=== PATIENT | female | born 1945 | race Caucasian/White ===

== ENCOUNTER 2016-08-28 17:21 | Inpatient (IN) ==
[~2016-08-28 17:21] MED LIST: *HR* Norepinephrine 4 MG/4 ML VIAL IVC ONE
--- NOTE | 2016-08-28 17:32 | Emergency Department Note ---
Disposition Clinical Impression: Leukocytosis Qualifiers: Leukocytosis type: unspecified Qualified Code(s): D72.829 - Elevated white blood cell count, unspecified Urinary tract infection Qualifiers: Urinary tract infection type: acute cystitis Hematuria presence: without hematuria Qualified Code(s): N30.00 - Acute cystitis without hematuria Sepsis Qualifiers: Sepsis type: sepsis due to unspecified organism Qualified Code(s): A41.9 - Sepsis, unspecified organism Disposition: Admitted As Inpatient Condition: Fair Referrals: NO,PCP [Primary Care Provider] - Forms: ED Satisfaction Letter Time of Disposition: 19:44 Neuro HPI - General Chief Complaint: ED Altered Mental Status Stated Complaint: AMS Time Seen by Provider: 08/28/16 17:27 Source: patient Mode of arrival: ambulatory Limitations: no limitations Nursing Notes Reviewed: Yes Vital Signs Reviewed: Yes - History of Present Illness HPI Narrative: 71-year-old who was at the senior living with a history of multiple sclerosis also has a history of Colin's palsy who was sent here for acute changes in her strength in her face and right arm. Was also noted to have some coffee ground emesis per the squad. This began about 4 PM. He has a history of bilateral lower extremity weakness to the point she cannot lift them off the bed prior to this. Notes from the senior living indicates patient is on [employer] Onset of Symptoms Date: 08/28/16 Onset of Symptoms Time: 16:00 Timing confirmed by: caregiver Location: left face, right arm History of same: No Quality: weakness Symptoms Improving: No Improves with: none Worsens with: none Context: other (Patient is in a senior living with MS and previous Colin's palsy however a discussion with the nurse who takes care of her for the last 12 years says the left facial droop and right arm weakness is new.) - Related Data Home Medications: Home Medications Medication Instructions Recorded Confirmed Acetaminophen [Tylenol] 650 mg PO Q4H PRN 10/28/15 10/28/15 Docusate [Colace] 100 mg PO DAILY PRN 10/28/15 10/28/15 Duloxetine [Cymbalta] 30 mg PO DAILY 10/28/15 10/28/15 Ergocalciferol (VITAMIN D2) 50,000 unit PO QWEEK 10/28/15 10/28/15 [Vitamin D2 (50,000 UNIT)] Ezetimibe [Zetia] 10 mg PO DAILY 10/28/15 10/28/15 Gabapentin [Neurontin] 600 mg PO DAILY 10/28/15 10/28/15 Insulin ASPART [NovoLOG] 6 unit SQ HS MDD per sliding scale 10/28/15 10/28/15 Insulin ASPART [NovoLOG] 6 unit SQ TIDAC MDD per sliding 10/28/15 10/28/15 scale Insulin Glargine [Lantus] 20 unit SQ HS 10/28/15 10/28/15 Levothyroxine [Synthroid] 25 mcg PO DAILY 10/28/15 10/28/15 Magnesium Hydroxide [Milk of 15 ml PO DAILY PRN 10/28/15 10/28/15 Magnesia] Ranitidine HCl [Zantac] 150 mg PO BID 10/28/15 10/28/15 Simvastatin [Zocor] 20 mg PO HS 10/28/15 10/28/15 Previous Rx's Medication Instructions Recorded Amlodipine [Norvasc] 10 mg PO DAILY tablet 11/06/15 Amoxicillin/Clavulanate [Augmentin] 875 mg PO BIDWM #14 tablet 11/06/15 Apixaban [Eliquis] 5 mg PO BID #0 tablet 11/06/15 CloNIDine HCl 0.2 mg PO TID tablet 11/06/15 Isosorbide MONOnitrate (24 HR) 60 mg PO DAILY tab.er.24h 11/06/15 [Imdur] Lisinopril [Zestril] 20 mg PO DAILY tablet 11/06/15 Methylphenidate HCl [Ritalin] 10 mg PO BID #10 tablet 11/06/15 Metoprolol [Lopressor] 50 mg PO BID tablet 11/06/15 Allergies/Adverse Reactions: Allergies Allergy/AdvReac Type Severity Reaction Status Date / Time No Known Allergies Allergy Verified 08/19/15 01:08 All systems ED: reviewed and negative except as stated. Constitutional: Denies: fever, chills, weakness, weight change Eyes: Denies: eye pain, eye discharge, vision change ENT ED: Denies: ear pain, throat pain, dental pain, hearing loss, epistaxis, congestion, dysphagia Cardiovascular: Denies: chest pain, palpitations, dyspnea on exertion, edema, syncope Respiratory: Denies: cough, dyspnea, wheezes, hemoptysis, stridor Gastrointestinal: Denies: abdominal pain, nausea, vomiting, diarrhea, constipation, hematemesis, melena, hematochezia Genitourinary: Denies: dysuria, frequency, hematuria, discharge Musculoskeletal: Denies: back pain, neck pain, arthralgia, myalgia Integumentary: Denies: rash, abrasion, lesions Neurological: Reports: weakness (Facial weakness right arm weakness). Denies: headache, numbness, paresthesias, confusion, abnormal gait, vertigo Psychiatric: Denies: anxiety, depression, suicidal thoughts, homicidal thoughts , auditory hallucinations, visual hallucinations Endocrine: Denies: fatigue Hematological/Lymphatic: Denies: easy bleeding, easy bruising Allergic/Immunologic: Denies: facial swelling, urticaria Past Medical History - Past Medical History Medical history: Reports: atrial fibrillation, diabetes, GERD, glaucoma, hypertension, thyroid disease, other (UTI) Surgical history: Reports: cholecystectomy, hysterectomy, other Psychiatric history: Reports: depression, other [employer] history: Reports: other - Social History Smoking Status: Former smoker Smokeless Tobacco Status: No Alcohol use: Reports: none Drug use: Reports: none Physical Exam - General Limitations: no limitations General appearance: alert, in no apparent distress - Head Head exam: atraumatic, normocephalic, normal inspection - Eye Eye exam: Present: normal appearance, PERRL, EOMI - ENT ENT exam: normal exam, normal oropharynx, mucous membranes moist - Neck Neck exam: Present: normal inspection, full ROM, trachea midline - Chest Chest inspection: Present: normal inspection, symmetric chest wall rise - Respiratory Respiratory exam: Present: normal lung sounds bilaterally - Cardiovascular Cardiovascular exam: Present: regular rate, normal rhythm, normal heart sounds - Abdominal Exam Abdominal exam: Present: soft, Non-Tender. Absent: tenderness, distention, guarding, rebound, rigidity - Extremities Exam Extremities exam: Present: normal inspection, full ROM. Absent: tenderness, pedal edema - Expanded Lower Extremity Exam Neurovascular/Tendon exam: Absent: motor deficit, sensory deficit, tendon deficit Gait: observed and normal - Back Exam Back exam: Present: normal inspection, full ROM. Absent: tenderness - Neurological Exam Neurological exam: Present: alert, oriented X3, motor sensory deficit (Patient has a drift in both upper extremities with some bilateral weakness she also has weakness in both legs she cannot lift them off the bed but she states that's not new she does have some slurred speech according to the nurse on duty at the senior living is new. And has a left facial droop which is new.) - Psychiatric Psychiatric exam: Present: normal affect, normal mood - Skin Skin exam: Present: warm, dry, intact, normal color Course - Reevaluation(s) Reevaluation #1: Echocardiogram done 10/30/2015 shows an EF of 65%. Time: 17:53 Reevaluation #2: Informed by the nurse that the IV had become disconnected from the IV and an amount of blood and had run out of the IV. Patient's pressure dropped to 108 systolic. Also the IV fluids did not completely run in as her bed was wet. We will give her additional 1 L of fluid. Time: 19:46 - Consultations Consultation #1: Discussed with [facility] , patient is not a TPA candidate, or a candidate for advanced neurovascular procedures recommends canceling the stroke alert. Commands admission locally with MRI further evaluation. Time: 17:47 Consultation #2: Discussed with radiology CT stroke alert was negative. Time: 17:50 Consultation #3: Discussed with Dr. Morel, admit. Time: 19:42 Vital Signs Temperature 98.4 F 08/28/16 17:23 Pulse Rate 122 08/28/16 17:23 Respiratory Rate 22 08/28/16 17:23 Blood Pressure 126/87 08/28/16 17:23 O2 Sat by Pulse Oximetry 97 08/28/16 17:23 Temperature 98.4 F 08/28/16 17:23 Pulse Rate 112 08/28/16 19:00 Respiratory Rate 22 08/28/16 19:00 Blood Pressure 123/74 08/28/16 19:00 O2 Sat by Pulse Oximetry 100 08/28/16 19:00 Oxygen Delivery Oxygen Delivery Room Air Neuro Symptoms/Deficit - Lab Data Result diagrams: 08/28/16 17:40 08/28/16 17:40 Lab Results 08/28/16 08/28/16 08/28/16 Range/Units 17:38 17:40 17:40 WBC 33.8 H* (4.3-11.1) K/mcL RBC 4.58 (3.82-4.97) M/mcL Hgb 13.6 (11.5-15.4) g/dL Hct 39.5 (35.3-44.9) % MCV 86.2 (83.0-100.0) fL MCH 29.7 (28.0-33.3) pg MCHC 34.4 (31.6-35.5) g/dL RDW 14.5 (11.5-14.5) % Plt Count 336 (140-400) K/mcL MPV 9.9 (9.4-12.4) fL Seg Neutrophils % 88.0 % Band Neutrophils % 6.0 H (0-4) % Lymphocytes % 3.0 % Monocytes % 3.0 % Neutrophils # 31.8 H (1.6-8.9) K/mcL Lymphocytes # 1.0 (0.6-4.6) K/mcL Monocytes # 1.0 (0.0-1.3) K/mcL Platelet Estimate Normal (Normal) PT 19.7 H (9.4-12.1) Seconds INR 1.8 APTT 33.3 (26.0-36.0) Seconds Sodium (136-145) mEq/L Potassium (3.5-4.5) mEq/L Chloride (98-109) mEq/L Carbon Dioxide (19-29) mEq/L BUN (7-20) mg/dL Creatinine (0.57-1.11) mg/dL Est GFR ( Amer) (> 60) Est GFR (Non-Af Amer) (> 60) BUN/Creatinine Ratio (6-26) Glucose (70-99) mg/dL POC Glucose 413 H* (58-89) Calculated Osmolality (280-300) Lactic Acid (0.5-2.2) mmol/L Calcium (8.6-10.8) mg/dL Total Bilirubin (0.2-1.2) mg/dL Direct Bilirubin (0.0-0.5) mg/dL Indirect Bilirubin (0.0-1.2) mg/dL AST (5-34) Units/L ALT (0-55) Units/L Alkaline Phosphatase (38-126) Units/L Troponin I (0-0.03) ng/mL Serum Total Protein (6.0-8.3) g/dL Albumin (3.5-5.0) g/dL Globulin (2.4-3.5) g/dL Albumin/Globulin Ratio (1.1-2.2) Ur Specimen Adequacy Urine Color (Yellow) Urine Clarity (Clear) Urine pH (5.0-8.0) pH Units Ur Specific [place] (1.010-1.025) Urine Protein (Neg-Trace) mg/dL Urine Glucose (UA) (Normal) mg/dL Urine Ketones (Negative) mg/dL Urine Blood (Negative) Urine Nitrite (Negative) Urine Bilirubin (Negative) Urine Urobilinogen (Normal) mg/dL Ur Leukocyte Esterase (Negative) Urine Microscopic RBC (0-3) per hpf Urine Microscopic WBC (0-3) per hpf Ur Squamous Epith Cells (None-Few) per lpf Ur Transition Epith Cell (None-Few) per hpf Ur Renal Epithelial Cell (None-Few) per hpf Urine Bacteria (None-Few) per hpf Hyaline Casts (None-Few) per lpf Urine Yeast Ur Culture Indicated? (NO) Urine Opiates Screen (Xestml=326) ng/mL Ur Barbiturates Screen (Smtsbl=470) ng/mL Ur Phencyclidine Scrn (Cutoff=25) ng/mL Ur Amphetamines Screen (Fkdjon=9488) ng/mL U Benzodiazepines Scrn (Uaggag=438) ng/mL Urine Cocaine Screen (Cutoff= 300) ng/mL U Marijuana (THC) Screen (Cutoff = 50) ng/mL Ethyl Alcohol (0-10) mg/dL 08/28/16 08/28/16 08/28/16 Range/Units 17:40 17:40 17:40 WBC (4.3-11.1) K/mcL RBC (3.82-4.97) M/mcL Hgb (11.5-15.4) g/dL Hct (35.3-44.9) % MCV (83.0-100.0) fL MCH (28.0-33.3) pg MCHC (31.6-35.5) g/dL RDW (11.5-14.5) % Plt Count (140-400) K/mcL MPV (9.4-12.4) fL Seg Neutrophils % % Band Neutrophils % (0-4) % Lymphocytes % % Monocytes % % Neutrophils # (1.6-8.9) K/mcL Lymphocytes # (0.6-4.6) K/mcL Monocytes # (0.0-1.3) K/mcL Platelet Estimate (Normal) PT (9.4-12.1) Seconds INR APTT (26.0-36.0) Seconds Sodium 129 L (136-145) mEq/L Potassium 5.9 H (3.5-4.5) mEq/L Chloride 103 (98-109) mEq/L Carbon Dioxide 12 L (19-29) mEq/L BUN 57 H (7-20) mg/dL Creatinine 2.64 H (0.57-1.11) mg/dL Est GFR ( Amer) 22 L (> 60) Est GFR (Non-Af Amer) 18 L (> 60) BUN/Creatinine Ratio 22 (6-26) Glucose 469 H (70-99) mg/dL POC Glucose (58-89) Calculated Osmolality 304 H (280-300) Lactic Acid 4.1 H* (0.5-2.2) mmol/L Calcium 9.9 (8.6-10.8) mg/dL Total Bilirubin 0.5 (0.2-1.2) mg/dL Direct Bilirubin 0.2 (0.0-0.5) mg/dL Indirect Bilirubin 0.3 (0.0-1.2) mg/dL AST 19 (5-34) Units/L ALT 18 (0-55) Units/L Alkaline Phosphatase 108 (38-126) Units/L Troponin I 0.23 H* (0-0.03) ng/mL Serum Total Protein 7.5 (6.0-8.3) g/dL Albumin 3.1 L (3.5-5.0) g/dL Globulin 4.4 H (2.4-3.5) g/dL Albumin/Globulin Ratio 0.7 L (1.1-2.2) Ur Specimen Adequacy Urine Color (Yellow) Urine Clarity (Clear) Urine pH (5.0-8.0) pH Units Ur Specific [place] (1.010-1.025) Urine Protein (Neg-Trace) mg/dL Urine Glucose (UA) (Normal) mg/dL Urine Ketones (Negative) mg/dL Urine Blood (Negative) Urine Nitrite (Negative) Urine Bilirubin (Negative) Urine Urobilinogen (Normal) mg/dL Ur Leukocyte Esterase (Negative) Urine Microscopic RBC (0-3) per hpf Urine Microscopic WBC (0-3) per hpf Ur Squamous Epith Cells (None-Few) per lpf Ur Transition Epith Cell (None-Few) per hpf Ur Renal Epithelial Cell (None-Few) per hpf Urine Bacteria (None-Few) per hpf Hyaline Casts (None-Few) per lpf Urine Yeast Ur Culture Indicated? (NO) Urine Opiates Screen (Sftzwa=422) ng/mL Ur Barbiturates Screen (Mlllms=919) ng/mL Ur Phencyclidine Scrn (Cutoff=25) ng/mL Ur Amphetamines Screen (Zocpsz=5942) ng/mL U Benzodiazepines Scrn ([place]=056) ng/mL Urine Cocaine Screen (Cutoff= 300) ng/mL U Marijuana (THC) Screen (Cutoff = 50) ng/mL Ethyl Alcohol < 10 (0-10) mg/dL 08/28/16 08/28/16 Range/Units 18:28 18:28 WBC (4.3-11.1) K/mcL RBC (3.82-4.97) M/mcL Hgb (11.5-15.4) g/dL Hct (35.3-44.9) % MCV (83.0-100.0) fL MCH (28.0-33.3) pg MCHC (31.6-35.5) g/dL RDW (11.5-14.5) % Plt Count (140-400) K/mcL MPV (9.4-12.4) fL Seg Neutrophils % % Band Neutrophils % (0-4) % Lymphocytes % % Monocytes % % Neutrophils # (1.6-8.9) K/mcL Lymphocytes # (0.6-4.6) K/mcL Monocytes # (0.0-1.3) K/mcL Platelet Estimate (Normal) PT (9.4-12.1) Seconds INR APTT (26.0-36.0) Seconds Sodium (136-145) mEq/L Potassium (3.5-4.5) mEq/L Chloride (98-109) mEq/L Carbon Dioxide (19-29) mEq/L BUN (7-20) mg/dL Creatinine (0.57-1.11) mg/dL Est GFR ( Amer) (> 60) Est GFR (Non-Af Amer) (> 60) BUN/Creatinine Ratio (6-26) Glucose (70-99) mg/dL POC Glucose (58-89) Calculated Osmolality (280-300) Lactic Acid (0.5-2.2) mmol/L Calcium (8.6-10.8) mg/dL Total Bilirubin (0.2-1.2) mg/dL Direct Bilirubin (0.0-0.5) mg/dL Indirect Bilirubin (0.0-1.2) mg/dL AST (5-34) Units/L ALT (0-55) Units/L Alkaline Phosphatase (38-126) Units/L Troponin I (0-0.03) ng/mL Serum Total Protein (6.0-8.3) g/dL Albumin (3.5-5.0) g/dL Globulin (2.4-3.5) g/dL Albumin/Globulin Ratio (1.1-2.2) Ur Specimen Adequacy See below A Urine Color Yellow (Yellow) Urine Clarity Turbid A (Clear) Urine pH 5.0 (5.0-8.0) pH Units Ur Specific [place] 1.018 (1.010-1.025) Urine Protein 100 H (Neg-Trace) mg/dL Urine Glucose (UA) 500 H (Normal) mg/dL Urine Ketones Negative (Negative) mg/dL Urine Blood Moderate H (Negative) Urine Nitrite Negative (Negative) Urine Bilirubin Small H (Negative) Urine Urobilinogen Normal (Normal) mg/dL Ur Leukocyte Esterase Large H (Negative) Urine Microscopic RBC 3-5 H (0-3) per hpf Urine Microscopic WBC TNTC H (0-3) per hpf Ur Squamous Epith Cells Many H (None-Few) per lpf Ur Transition Epith Cell Moderate H (None-Few) per hpf Ur Renal Epithelial Cell Moderate H (None-Few) per hpf Urine Bacteria Many H (None-Few) per hpf Hyaline Casts None Seen (None-Few) per lpf Urine Yeast Test Not Performed Ur Culture Indicated? YES A (NO) Urine Opiates Screen Negative (Qactgs=827) ng/mL Ur Barbiturates Screen Negative (Vazgfq=916) ng/mL Ur Phencyclidine Scrn Negative (Cutoff=25) ng/mL Ur Amphetamines Screen Negative (Ptywwd=6889) ng/mL U Benzodiazepines Scrn Positive H (Ccilxg=960) ng/mL Urine Cocaine Screen Negative (Cutoff= 300) ng/mL U Marijuana (THC) Screen Negative (Cutoff = 50) ng/mL Ethyl Alcohol (0-10) mg/dL - EKG Data EKG attestation: Yes I reviewed and interpreted this EKG. EKG shows normal: sinus rhythm Rate: tachycardia Rhythm: NSR Interpretation: no acute changes NIH Stroke Scale - Level of Consciousness LOC: Alert - LOC Questions LOC Questions: Answers both correctly - LOC Commands LOC Commands: Performs both correctly - Best Gaze Best Gaze: Normal - Visual Visual: No visual loss - Facial Palsy Facial Palsy: Minor asymmetry on smiling, flattened nasolabial fold - Motor Arms Motor Arm-Left: No drift for 10 seconds Motor Arm-Right: No drift for 10 seconds - Motor Legs Motor Leg-Left: No movement Motor Leg-Right: No movement - Limb Ataxia Limb Ataxia: Absent of affected limb too weak to perform exam - Sensory Sensory: Normal - Best Language Best Language: No aphasia - Dysarthria Dysarthria: Mild, slurs some words - Extinction and Inattention Extinction and Inattention: Normal - NIHSS Total Score NIHSS Total Score: 10 TPA Checklist - Eligibilty for IV tPA 1. LKW equal to or less than 4.5 hours be before treatment: Yes 2. Clinical diagnosis of ischemic stroke causing deficit: Yes 3. Age 18 years or older: Yes - Contraindications 4. Evidence of intracranial hemorrhage on pretreatment CT: No 5. Presentation suggests subarachnoid hem, even if CT normal: No 6. CT shows multilobar infarction: No 7. History of intracranial hemorrhage: No 8. Known neoplasm, arteriovenous malformation, or aneurysm: No 9. Significant head trauma (w/ LOC) or CVA in last 3 months: No 10. Intracranial or intraspinal surgery in 3 months: No 11. Arterial puncture at non-compressable site/LP in 7 days: No 12. BP elevated (systolic > 185 or diastolic > 110): No 13. Abnormal Blood Glucose (<50 or >400mg/dl): No 14. Active internal bleeding: Yes 15. Known bleeding risk (including; not limited to 16-18): Yes 16. Heparin/argatroban/bivalirudin w/in 48hrs & PTT > normal: No 17. Platelet count less than 100,000/MM3: No 18. Current or recent use of anticoagualants (see protocol): Yes - Relative Contraindications 19. Only minor or rapidly improving stroke symptoms: No 20. Seizure at onset w/ postictal residual neuro impairments: No 21. : No 22. Current/recent use Effient (7 days) or Brilinta (5 days): No 23. Major surgery or serious truama in last 14 days: No 24. GI or urinary tract hemorrhage in last 21 days: Yes - LKW: 3-4.5 hrs Add. Contraindications 27. Taking an oral anticoagualant regardless of INR: Yes Patient/family understanding: The patient/family members have been counseled and understood the risk, benefit , and alternatives of treatment. Critical Care Time Critical Care Time: Yes Total Critical Care Time: 30 Attestation: The high probability of a clinically significant, sudden or life threatening deterioration of the [cardiovascular] system(s) required my full and direct attention, intervention and personal management. The aggregate critical care time was [30] minutes. This time is in addition to time spent performing reported procedures but includes the following: [x] Data Review and interpretation [x] Patient assessment and monitoring of vital signs [x] Documentation [x] Medication orders and management
[2016-08-28 17:47] LABS: Hematocrit 39.5 % (35.3-44.9); Hemoglobin 13.6 g/dL (11.5-15.4); Mean Corpuscular HGB Conc 34.4 g/dL (31.6-35.5); Mean Corpuscular Hemoglobin 29.7 pg (28.0-33.3); Mean Corpuscular Volume 86.2 fL (83.0-100.0); Mean Platelet Volume 9.9 fL (9.4-12.4); Platelet Count 336 K/mcL (140-400); Red Blood Count 4.58 M/mcL (3.82-4.97); Red Cell Distribution Width 14.5 % (11.5-14.5)
[2016-08-28 17:52] LABS: INR 1.8; Prothrombin Time 19.7 Seconds (9.4-12.1)
[2016-08-28 17:55] LABS: Activated Partial Thrombo Time 33.3 Seconds (26.0-36.0)
[2016-08-28] MEDS ORDERED: Piperacillin/Tazobactam 3.375 GM in D5% in Water (Mini-Bag+) 100 ML IVPB ONE (17:59)
[2016-08-28 18:02] LABS: Alanine Aminotransferase 18 Units/L (0-55); Albumin 3.1 g/dL (3.5-5.0); Albumin/Globulin Ratio 0.7 (1.1-2.2); Alkaline Phosphatase 108 Units/L (38-126); Aspartate Amino Transferase 19 Units/L (5-34); BUN/Creatinine Ratio 22 (6-26); Bilirubin,Direct 0.2 mg/dL (0.0-0.5); Bilirubin,Indirect 0.3 mg/dL (0.0-1.2); Bilirubin,Total 0.5 mg/dL (0.2-1.2); Blood Urea Nitrogen 57 mg/dL (7-20); Calcium 9.9 mg/dL (8.6-10.8); Carbon Dioxide 12 mEq/L (19-29); Chloride 103 mEq/L (98-109); Globulin 4.4 g/dL (2.4-3.5); Glucose 469 mg/dL (70-99); Osmolality,Calculated 304 (280-300); Potassium 5.9 mEq/L (3.5-4.5); Sodium 129 mEq/L (136-145); Total Protein 7.5 g/dL (6.0-8.3); eGFR For African Americans 22 (> 60); eGFR For Non-African Americans 18 (> 60)
[2016-08-28] MEDS: 0.9 % Sodium Chloride 1,000 ML IVC SCH ×4 (18:02→23:14)
[2016-08-28 18:03] LABS: Ethanol < 10 mg/dL (0-10)
[2016-08-28 18:04] LABS: Neutrophils # 31.8 K/mcL (1.6-8.9); Platelet Estimate Normal (Normal)
[2016-08-28 18:39] LABS: Bilirubin,Urine Small (Negative); Blood,Urine Moderate (Negative); Clarity,Urine Turbid (Clear); Color,Urine Yellow (Yellow); Glucose,Urine (UA) 500 mg/dL (Normal); Ketones,Urine Negative (Negative); Leukocyte Esterase,Urine Large (Negative); Nitrite,Urine Negative (Negative); Protein,Urine 100 mg/dL (Neg-Trace); Specific Gravity,Urine 1.018 (1.010-1.025); Urobilinogen,Urine Normal (Normal)
[2016-08-28 18:41] LABS: Bacteria,Urine Many per hpf (None-Few); Squamous Epithelial Cell,Urine Many per lpf (None-Few); WBC,Urine TNTC per hpf (0-3)
[2016-08-28 18:44] LABS: Amphetamine Screen,Urine Negative ng/mL (Cutoff=1000); Barbiturate Screen,Urine Negative ng/mL (Cutoff=200); Benzodiazepines Screen,Urine Positive ng/mL (Cutoff=200); Cannabinoid Screen,Urine Negative ng/mL (Cutoff = 50); Cocaine Screen,Urine Negative ng/mL (Cutoff= 300); Opiate Screen,Urine Negative ng/mL (Cutoff=300); Phencyclidine Screen,Urine Negative ng/mL (Cutoff=25)
[2016-08-28 18:55] LABS: Renal Epithelial Cells,Urine Moderate per hpf (None-Few); Transitional Epi Cells,Urine Moderate per hpf (None-Few)
[2016-08-28 18:56] LABS: Hyaline Casts,Urine None Seen per lpf (None-Few)
[2016-08-28] MEDS ORDERED: 0.9 % Sodium Chloride 1,000 ML IVC ONE (19:47)
[2016-08-28] MEDS ORDERED: Acetaminophen 325 MG TABLET PO PRN (20:04)
[2016-08-28] MEDS ORDERED: *HR* Morphine 2 MG/ML SYRINGE IVP PRN (20:04)
[2016-08-28] MEDS ORDERED: Ondansetron 4 MG/2 ML VIAL IVP PRN (20:04)
[2016-08-28] MEDS ORDERED: Naloxone 0.4 MG/ML INJ IVP PRN (20:04)
--- NOTE | 2016-08-28 20:14 | Internal Med History&Physical ---
Date of Encounter: 08/28/16 Time of Encounter: 20:09 Assessment and Plan (1) Sepsis Current visit: Yes Status: Acute Severe sepsis and possible septic shock due to urinary tract infection ( elevated lactic acid) Start Rocephin Await urine culture final report Aggressive hydration Hold amlodipine, clonidine and lisinopril for now Qualifiers: Sepsis type: sepsis due to unspecified organism Qualified Code(s): A41.9 - Sepsis, unspecified organism (2) Hyponatremia Current visit: Yes Status: Acute Monitor sodium (3) Multiple sclerosis Current visit: Yes Status: Acute Order MRI of the brain, consider starting high-dose Solu-Medrol if multiple sclerosis exacerbation is confirmed (4) Urinary tract infection Current visit: Yes Status: Acute Qualifiers: Urinary tract infection type: acute cystitis Hematuria presence: without hematuria Qualified Code(s): N30.00 - Acute cystitis without hematuria (5) Atrial fibrillation with RVR Current visit: No Status: Acute Continue metoprolol (6) Diabetes mellitus Current visit: No Status: Chronic Continue insulin Qualifiers: Diabetes mellitus type: type 2 Diabetes mellitus complication status: with unspecified complications Diabetes mellitus equipment operator intermodal yard insulin use: with equipment operator intermodal yard use Qualified Code(s): E11.8 - Type 2 diabetes mellitus with unspecified complications (7) [id number] kidney injury Current visit: No Status: Resolved Continue IV fluids Omeprazole for GI prophylaxis and Eliquis for DVT prophylaxis. Patient will be admitted as inpatient, she is expected to stay more than 2 midnights. Full code. Time spent on this admission 45 minutes high risk due to sepsis Internal Medicine - H&P: HPI Chief complaint: Right hand weakness and altered mental status Admitted From: Emergency Dept History of present illness: Ms. Queen is a 71 year old female with a past medical history of multiple sclerosis, Colin's palsy, a fever with RVR on Eliquis who was brought to the emergency room as her nurse at the skilled nursing noticed some more pronounced left facial droop and right hand weakness that started approximately 4 PM. Stroke alert was called and the neurologist from [facility] evaluated the patient, no TPA was recommended as the patient is already in the anticoagulant medication. Her heart rate was 122. UA showed multiple bacteria with too numerous to count white blood cells, her white blood cell count is 33.8 with 6% bands, sodium is 129 potassium 5.9 creatinine has increased from baseline of 1.36 up to 2.64. Troponin 0.23 which is not complaining of any chest pain, lactic acid is 4.1 glucose is 413. Patient blood pressure is stable and her heart rate has decreased slightly from 122 down to 110/to getting fluids. She feels very weak and is complaining of lower abdominal pain. 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, CKD3, glaucoma, hypothyroidism, depression ) Psychiatric history: depression, other - Past Surgical History Surgical History: cholecystectomy, hysterectomy, other (Echocardiogram in October 2015 shows an ejection fraction of 55%) - Social History Smoking Status: Former smoker (Quit 15 years ago) Smokeless Tobacco Status: No Alcohol use: none Drug use: none - Additional Family History Additional family history: Sister with CVA Internal Medicine - H&P: Meds Acetaminophen [Tylenol] 650 mg PO Q4H PRN 10/28/15 [History] Docusate [Colace] 100 mg PO DAILY PRN 10/28/15 [History] Duloxetine [Cymbalta] 30 mg PO DAILY 10/28/15 [History] Ergocalciferol (VITAMIN D2) [Vitamin D2 (50,000 UNIT)] 50,000 unit PO QWEEK [History] Ezetimibe [Zetia] 10 mg PO DAILY 10/28/15 [History] Gabapentin [Neurontin] 600 mg PO DAILY 10/28/15 [History] Insulin ASPART [NovoLOG] 6 unit SQ HS MDD per sliding scale 10/28/15 [History] Insulin ASPART [NovoLOG] 6 unit SQ TIDAC MDD per sliding scale 10/28/15 [History ] Insulin Glargine [Lantus] 20 unit SQ HS 10/28/15 [History] Levothyroxine [Synthroid] 25 mcg PO DAILY 10/28/15 [History] Magnesium Hydroxide [Milk of Magnesia] 15 ml PO DAILY PRN 10/28/15 [History] Ranitidine HCl [Zantac] 150 mg PO BID 10/28/15 [History] Simvastatin [Zocor] 20 mg PO HS 10/28/15 [History] Amlodipine [Norvasc] 10 mg PO DAILY tablet 11/06/15 [Rx] Amoxicillin/Clavulanate [Augmentin] 875 mg PO BIDWM #14 tablet 11/06/15 [Rx] Apixaban [Eliquis] 5 mg PO BID #0 tablet 11/06/15 [Rx] CloNIDine HCl 0.2 mg PO TID tablet 11/06/15 [Rx] Isosorbide MONOnitrate (24 HR) [Imdur] 60 mg PO DAILY tab.er.24h 11/06/15 [Rx] Lisinopril [Zestril] 20 mg PO DAILY tablet 11/06/15 [Rx] Methylphenidate HCl [Ritalin] 10 mg PO BID #10 tablet 11/06/15 [Rx] Metoprolol [Lopressor] 50 mg PO BID tablet 11/06/15 [Rx] Allergies No Known Allergies Allergy (Verified 08/19/15 01:08) All Systems PM: A 10-system review of systems was performed and is negative for pertinent findings except as documented above in the HPI. Review of systems: Denies any chest pain, shortness of breath, no diarrhea. She has chronic bilateral lower extremity weakness, other systems out of the 10 reviewed were negative - Constitutional Vitals: Temp Pulse Resp BP Pulse Ox 98.4 F 112 22 123/74 100 08/28/16 17:23 08/28/16 19:00 08/28/16 19:00 08/28/16 19:00 08/28/16 19:00 General appearance: Present: A&O X 3 (Left facial droop from Colin's palsy) - Head Head exam: Present: atraumatic, normocephalic - Eye Eye exam: Present: PERRL, conjuntiva pink, sclera anicteric Pupils: Present: PERRL - Neck Neck exam general surgery: Present: supple, trachea midline. Absent: lymphadenopathy - Respiratory Respiratory exam: Present: decreased breath sounds, CTAB. Absent: accessory muscle use, rales, rhonchi, wheezes - Cardiovascular Cardiovascular exam: Present: RRR, +S1, +S2. Absent: diastolic murmur, gallop, rubs, systolic murmur - GI/Abdominal GI/Abdominal exam: Present: distended (Very distended abdomen, Bergeron catheter in place which is indwelling ), normal bowel sounds, soft, no peritoneal signs. Absent: tenderness - Extremities Exam Extremities exam: Present: warm, radial pulses palpable and symetrical. Absent : calf tenderness, cyanotic, pedal edema - Neurological Exam Neurological exam: Present: CN II-XII intact, oriented X3, facial droop (Left ) . Absent: no focal deficits (Bilateral lower extremity weakness, upper extremities weakness/generalized weakness ), pronater drift, speech deficit - Skin Skin exam: Present: dry, intact Internal Med - H&P Results - Labs CBC & Chem 7: 08/28/16 17:40 08/28/16 17:40 Labs: Short CBC 08/28/16 Range/Units 17:40 WBC 33.8 H* (4.3-11.1) K/mcL Hgb 13.6 (11.5-15.4) g/dL Hct 39.5 (35.3-44.9) % Plt Count 336 (140-400) K/mcL Neutrophils # 31.8 H (1.6-8.9) K/mcL BMP 08/28/16 17:40 Sodium 129 L Potassium 5.9 H Chloride 103 Carbon Dioxide 12 L BUN 57 H Creatinine 2.64 H Glucose 469 H Calcium 9.9 Cardiac Enzymes 08/28/16 Range/Units 17:40 Troponin I 0.23 H* (0-0.03) ng/mL Liver Function 08/28/16 Range/Units 17:40 Total Bilirubin 0.5 (0.2-1.2) mg/dL Direct Bilirubin 0.2 (0.0-0.5) mg/dL AST 19 (5-34) Units/L ALT 18 (0-55) Units/L Alkaline Phosphatase 108 (38-126) Units/L Albumin 3.1 L (3.5-5.0) g/dL Urine 08/28/16 Range/Units 18:28 Urine Color Yellow (Yellow) Urine Clarity Turbid A (Clear) Urine pH 5.0 (5.0-8.0) pH Units Ur Specific Warren 1.018 (1.010-1.025) Urine Protein 100 H (Neg-Trace) mg/dL Urine Glucose (UA) 500 H (Normal) mg/dL - Impressions ITS Impressions Chest X-Ray 08/28/16 17:27 IMPRESSION: No acute process. D/ / Berkley Atkins MD / Berkley Atkins MD Interpreting Provider: Berkley Atkins MD Head CT 08/28/16 17:27 IMPRESSION: No acute intracranial abnormality. Findings discussed with Dr. Thomas from the ER department on August 28, 2016 at 5:50 p.m.. D/ / Berkley Atkins MD / Berkley Atkins MD Interpreting Provider: Berkley Atkins MD
[2016-08-28] MEDS ORDERED: 0.9 % Sodium Chloride 1,000 ML IVC SCH (20:15)
[2016-08-28] MEDS ORDERED: D5% in Water 1,000 ML IVC PRN (20:23)
[2016-08-28] MEDS ORDERED: *HR* Dextrose 50 % in Water (Syg) 50 ML SYRINGE IVP PRN (20:23)
[2016-08-28] MEDS ORDERED: Dextrose Gel 15 GM PO PRN ×2 (20:23)
[2016-08-28] MEDS ORDERED: Insulin LISPRO 300 UNITS/3 ML VIAL SQ SCH ×2 (21:00)
[2016-08-28] MEDS: APIXABAN 5 MG TABLET PO SCH (23:15)
[2016-08-28] MEDS: Insulin LISPRO 300 UNITS/3 ML VIAL SQ SCH ×2 (23:15)
[2016-08-29 00:34] LABS: ABG Base Excess -15.3 mEq/L (-2.0 to 3.0); ABG HCO3 9.1 mEQ/L (21-27); ABG Oxygen Saturation 100 % (95-98); ABG PH 7.31 pH Units (7.32-7.45); ABG PO2 188 mmHg (85-104); ABG TCO2 9.7 mEq/L (20-26)
[2016-08-29 00:36] LABS: ABG PCO2 18 mmHg (35-45)
[2016-08-29] MEDS ORDERED: 0.9 % Sodium Chloride 1,000 ML IVC SCH ×3 (01:56→05:15)
[2016-08-29 04:31] LABS: Monocytes % 7.6 %; Red Cell Distribution Width 15.1 % (11.5-14.5)
[2016-08-29 04:33] LABS: Basophils # 0.1 K/mcL (0.0-0.2); Basophils % 0.2 %; Hematocrit 31.8 % (35.3-44.9); Hemoglobin 10.5 g/dL (11.5-15.4); Immature Granulocytes % 0.7 % (0-4); Lymphocytes # 1.3 K/mcL (0.6-4.6); Lymphocytes % 4.1 %; Mean Corpuscular Volume 90.9 fL (83.0-100.0); Mean Platelet Volume 10.8 fL (9.4-12.4); Monocytes # 2.5 K/mcL (0.0-1.3); Nucleated Red Blood Cells 0.2 /100 WBC (0); Platelet Count 251 K/mcL (140-400); Segmented Neutrophils % 87.4 %
[2016-08-29 04:35] LABS: Neutrophils # 28.1 K/mcL (1.6-8.9)
[2016-08-29 04:44] LABS: Calcium 8.5 mg/dL (8.6-10.8); Potassium 6.3 mEq/L (3.5-4.5)
[2016-08-29 05:08] LABS: Platelet Estimate Normal (Normal)
[2016-08-29 05:57] LABS: ABG Base Excess -19.8 mEq/L (-2.0 to 3.0); ABG HCO3 7.5 mEQ/L (21-27); ABG Oxygen Saturation 100 % (95-98); ABG PCO2 22 mmHg (35-45); ABG PO2 344 mmHg (85-104); ABG TCO2 8.2 mEq/L (20-26)
[2016-08-29 05:58] LABS: Blood Gas FiO2 100 %
[2016-08-29 05:59] LABS: ABG PH 7.14 pH Units (7.32-7.45)
[2016-08-29] MEDS ORDERED: Vancomycin 1,000 MG in D5% in Water 250 ML IVPB SCH (06:00)
[2016-08-29] MEDS ORDERED: Sodium Bicarbonate 150 MEQ in D5% in Water 1,000 ML IVC SCH (06:15)
[2016-08-29] MEDS ORDERED: Vancomycin 1,000 MG in D5% in Water 250 ML IVPB ONE (06:30)
[2016-08-29] MEDS ORDERED: Levothyroxine 25 MCG TABLET PO SCH (06:30)
[2016-08-29] MEDS ORDERED: MetroNIDAZOLE 500 MG/100 ML 500 MG/100 ML BAG IVPB SCH (08:00)
[2016-08-29] MEDS: 0.9 % Sodium Chloride 1,000 ML IVC SCH ×2 (08:00→09:00)
[2016-08-29] MEDS ORDERED: Dexmedetomidine HCl 400 MCG/100 ML MLS IVC ONE (08:13)
[2016-08-29] MEDS ORDERED: Lacri-Lube 3.5 GM TUBE BOTH EYES PRN (08:15)
[2016-08-29] MEDS ORDERED: Dexmedetomidine HCl 400 MCG/100 ML MLS IVC SCH (08:30)
--- NOTE | 2016-08-29 08:50 | Neurology - Consult Note ---
Date of Encounter: 08/29/16 Time of Encounter: 08:50 Assessment and Plan (1) Focal neurological signs Current Visit: Yes Status: Acute Initially patient was brought from [facility] to the ER for pronounced left- sided facial droop and right hand weakness, concern was acute exacerbation of multiple sclerosis versus acute CVA, however patient was transferred to ICU for UTI with septic shock, lactic acidosis and oliguric acute kidney injury, currently patient is intubated and on IV levophed/Precedex, with severe infection picture, difficult to assess whether this is acute exacerbation of MS or not, patient takes eliquis at home for history of atrial fibrillation, acute stroke is low in differential, brain MRI has been ordered, however patient is unstable to go through the MRI machine at this time, will make further recommendations after reviewing the image. History of Present Illness Chief complaint: Left sided facial droop and right hand weakness HPI: Ms. Queen is a 71 year old female with a history of multiple sclerosis, Colin' s palsy, atrial fibrillation on chronic anticoagulation therapy with eliquis, insulin-dependent diabetes type 2, and hypothyroidism who was brought from the [facility] to the ER for left-sided facial droop and right hand weakness which started approximately at 4 PM yesterday, noticed by [facility] nurse. Stroke alert was called and neurologist from [facility] evaluated the patient, no TPA was recommended as she was already on anticoagulation medication. Subsequently patient was admitted to the hospital for UTI with sepsis and atrial fibrillation with rapid ventricular response, earlier this morning patient was transfer to ICU for septic shock, lactic acidosis, severe abdominal distention and tachypnea, subsequently patient was intubated and started on levophed. Neurology was consulted for possibility of acute exacerbation of multiple sclerosis versus acute CVA, when I saw the patient in ICU she was on Precedex IV drip, she would open her eyes to voice and follow simple commands by squeezing my hands. 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, CKD3, glaucoma, hypothyroidism, depression ) Psychiatric history: depression, other - Past Surgical History Surgical History: cholecystectomy, hysterectomy, other (Echocardiogram in October 2015 shows an ejection fraction of 55%) - Social History Smoking Status: Former smoker (Quit 15 years ago) Smokeless Tobacco Status: No Alcohol use: none Drug use: none - Family History Mother History Unknown: Yes Father History Unknown: Yes Medications and Allergies Acetaminophen [Tylenol] 650 mg PO Q4H PRN 10/28/15 [History] Docusate [Colace] 100 mg PO DAILY PRN 10/28/15 [History] Duloxetine [Cymbalta] 30 mg PO DAILY 10/28/15 [History] Ergocalciferol (VITAMIN D2) [Vitamin D2 (50,000 UNIT)] 50,000 unit PO QWEEK [History] Ezetimibe [Zetia] 10 mg PO DAILY 10/28/15 [History] Gabapentin [Neurontin] 600 mg PO DAILY 10/28/15 [History] Insulin ASPART [NovoLOG] 6 unit SQ HS MDD per sliding scale 10/28/15 [History] Insulin ASPART [NovoLOG] 6 unit SQ TIDAC MDD per sliding scale 10/28/15 [History ] Insulin Glargine [Lantus] 20 unit SQ HS 10/28/15 [History] Levothyroxine [Synthroid] 25 mcg PO DAILY 10/28/15 [History] Magnesium Hydroxide [Milk of Magnesia] 15 ml PO DAILY PRN 10/28/15 [History] Ranitidine HCl [Zantac] 150 mg PO BID 10/28/15 [History] Simvastatin [Zocor] 20 mg PO HS 10/28/15 [History] Amlodipine [Norvasc] 10 mg PO DAILY tablet 11/06/15 [Rx] Amoxicillin/Clavulanate [Augmentin] 875 mg PO BIDWM #14 tablet 11/06/15 [Rx] Apixaban [Eliquis] 5 mg PO BID #0 tablet 11/06/15 [Rx] CloNIDine HCl 0.2 mg PO TID tablet 11/06/15 [Rx] Isosorbide MONOnitrate (24 HR) [Imdur] 60 mg PO DAILY tab.er.24h 11/06/15 [Rx] Lisinopril [Zestril] 20 mg PO DAILY tablet 11/06/15 [Rx] Methylphenidate HCl [Ritalin] 10 mg PO BID #10 tablet 11/06/15 [Rx] Metoprolol [Lopressor] 50 mg PO BID tablet 11/06/15 [Rx] Allergies No Known Allergies Allergy (Verified 08/19/15 01:08) ROS unobtainable: due to endotracheal tube All Systems: A 10-system review of systems was performed and is negative for pertinent findings except as documented above in the HPI. Physical Examination - Vital Signs Vital Signs: Initial Vital Signs Temp Pulse Resp BP Pulse Ox 98.4 F 122 22 126/87 97 08/28/16 17:23 08/28/16 17:23 08/28/16 17:23 08/28/16 17:23 08/28/16 17:23 - Constitutional General appearance: acutely ill, other (On IV sedation) - Neurologic Sensorimotor examination: other (Difficult to perform full neurological assessment under IV sedation, however patient will open her eyes to voice, follow simple commands by squeezing my hands) Detailed motor examination: other (Difficult to assess motor strength under IV sedation) Detailed sensory examination: other (Patient is on IV sedation, limited sensory exam) Reflex and gait examination: foot droop (Bilateral, this could be chronic per medical record) Reflexes: Biceps: 2+, Brachioradialis: 2+, Patella: 3+ Mental Status Examination: opens eyes to voice, follows simple commands Cranial nerve examination: PERRL (Bilaterally dilated, sluggish to react to light) Results - Laboratory Findings CBC and BMP: 08/29/16 04:12 08/29/16 04:12 Abnormal lab findings: Abnormal lab results WBC 32.2 K/mcL (4.3-11.1) H* 08/29/16 04:12 RBC 3.50 M/mcL (3.82-4.97) L 08/29/16 04:12 Hgb 10.5 g/dL (11.5-15.4) L D 08/29/16 04:12 Hct 31.8 % (35.3-44.9) L 08/29/16 04:12 RDW 15.1 % (11.5-14.5) H 08/29/16 04:12 Band Neutrophils % 6.0 % (0-4) H 08/28/16 17:40 Neutrophils # 28.1 K/mcL (1.6-8.9) H 08/29/16 04:12 Monocytes # 2.5 K/mcL (0.0-1.3) H 08/29/16 04:12 Nucleated RBCs/100 WBC 0.2 /100 WBC (0) H 08/29/16 04:12 PT 19.7 Seconds (9.4-12.1) H 08/28/16 17:40 ABG pH 7.14 pH Units (7.32-7.45) L* D 08/29/16 05:50 ABG pCO2 22 mmHg (35-45) L 08/29/16 05:50 ABG pO2 344 mmHg (85-104) H 08/29/16 05:50 ABG HCO3 7.5 mEQ/L (21-27) L 08/29/16 05:50 ABG Total CO2 8.2 mEq/L (20-26) L 08/29/16 05:50 ABG O2 Saturation 100 % (95-98) H 08/29/16 05:50 ABG Base Excess -19.8 mEq/L (-2.0 to 3.0) L 08/29/16 05:50 Sodium 135 mEq/L (136-145) L 08/29/16 04:12 Potassium 6.3 mEq/L (3.5-4.5) H 08/29/16 04:12 Chloride 111 mEq/L (98-109) H 08/29/16 04:12 Carbon Dioxide 9 mEq/L (19-29) L* 08/29/16 04:12 BUN 60 mg/dL (7-20) H 08/29/16 04:12 Creatinine 2.67 mg/dL (0.57-1.11) H 08/29/16 04:12 Est GFR ( Amer) 21 (> 60) L 08/29/16 04:12 Est GFR (Non-Af Amer) 18 (> 60) L 08/29/16 04:12 Glucose 360 mg/dL (70-99) H 08/29/16 04:12 POC Glucose 271 (58-89) H 08/29/16 06:40 Calculated Osmolality 311 (280-300) H 08/29/16 04:12 Lactic Acid 7.9 mmol/L (0.5-2.2) H* 08/29/16 04:12 Calcium 8.5 mg/dL (8.6-10.8) L 08/29/16 04:12 Troponin I 0.26 ng/mL (0-0.03) H* 08/29/16 04:12 Albumin 3.1 g/dL (3.5-5.0) L 08/28/16 17:40 Globulin 4.4 g/dL (2.4-3.5) H 08/28/16 17:40 Albumin/Globulin Ratio 0.7 (1.1-2.2) L 08/28/16 17:40 Ur Specimen Adequacy See below A 08/28/16 18:28 Urine Clarity Turbid (Clear) A 08/28/16 18:28 Urine Protein 100 mg/dL (Neg-Trace) H 08/28/16 18:28 Urine Glucose (UA) 500 mg/dL (Normal) H 08/28/16 18:28 Urine Blood Moderate (Negative) H 08/28/16 18:28 Urine Bilirubin Small (Negative) H 08/28/16 18:28 Ur Leukocyte Esterase Large (Negative) H 08/28/16 18:28 Urine Microscopic RBC 3-5 per hpf (0-3) H 08/28/16 18:28 Urine Microscopic WBC TNTC per hpf (0-3) H 08/28/16 18:28 Ur Squamous Epith Cells Many per lpf (None-Few) H 08/28/16 18:28 Ur Transition Epith Cell Moderate per hpf (None-Few) H 08/28/16 18:28 Ur Renal Epithelial Cell Moderate per hpf (None-Few) H 08/28/16 18:28 Urine Bacteria Many per hpf (None-Few) H 08/28/16 18:28 Ur Culture Indicated? YES (NO) A 08/28/16 18:28 U Benzodiazepines Scrn Positive ng/mL (Pawhhx=520) H 08/28/16 18:28 Consult Discharge Plan - Plan Referrals: NO,PCP [Primary Care Provider] -
[2016-08-29] MEDS ORDERED: Isosorbide MONOnitrate (24 HR) 30 MG TAB.ER.24H PO SCH (09:00)
[2016-08-29] MEDS ORDERED: Chlorhexidine Rinse 15 ML MOUTHWASH MM SCH (09:00)
[2016-08-29] MEDS ORDERED: (Ezetimibe [Zetia] 10 MG) PO SCH (09:00)
[2016-08-29] MEDS ORDERED: Gabapentin 300 MG CAPSULE PO SCH (09:00)
[2016-08-29 09:05] LABS: ABG Base Excess -18.5 mEq/L (-2.0 to 3.0); ABG HCO3 8.9 mEQ/L (21-27); ABG Oxygen Saturation 100 % (95-98); ABG PCO2 26 mmHg (35-45); ABG PO2 320 mmHg (85-104); ABG TCO2 9.7 mEq/L (20-26)
[2016-08-29 09:07] LABS: ABG PH 7.14 pH Units (7.32-7.45); Blood Gas FiO2 100 %
[2016-08-29] MEDS ORDERED: Sodium Bicarbonate 100 MEQ in D5% in Water 1,000 ML IVC SCH (09:23)
[2016-08-29] MEDS ORDERED: Norepinephrine 4 MG in D5% in Water 250 ML IVC SCH (09:30)
[2016-08-29] MEDS ORDERED: FentaNYL (PF) 1,000 MCG in 0.9 % Sodium Chloride 80 ML IVC SCH (10:00)
[2016-08-29] MEDS: Insulin LISPRO 300 UNITS/3 ML VIAL SQ SCH ×2 (10:18→10:19)
[2016-08-29] MEDS: APIXABAN 5 MG TABLET PO SCH (10:42)
[2016-08-29 10:49] VITALS: BP 98/52
[2016-08-29] MEDS ORDERED: SODIUM CHLORIDE 0.9% IVPB ONE (11:00)
[2016-08-29] MEDS ORDERED: COLISTIN IVPB ONE (11:00)
--- NOTE | 2016-08-29 11:40 | Palliative - Consult Note ---
Date of Encounter: 08/29/16 Time of Encounter: 11:25 - Assessment and Plan (1) Goals of care, counseling/discussion Current Visit: Yes Status: Acute Assessment and plan: Goals of care discussion with Mr. Damien Vazquez (brother and POA), Mr. Ibarra Jl (brother in law), Dr. Schuler, primary care nurse, and palliative care team. Reviewed current diagnosis, lab testing, plan of care. Mr. Vazquez indicated that he and his sister have discussed end of life care in the past, and she did not desire life support in any way. At this time, Mr. Vazquez desires to honor Ms. Queen's previously known wishes and withdraw life supportive measures. He is aware of her grave condition and the possible outcomes of her care, including her demise. Mr. Vazquez is supported in his decision by Susy Ibarra. Following liberation from the ventilator, we discussed further plan of care. Ms. Queen will be transferred to the palliative care unit for further comfort measures. Will consult with social work specialist for discharge disposition ( possible return to [facility] with hospice services). Discussed with ICU team. Spiritual support provided by Mr. Ibarra, [facility] Construction Management Assistant, and [place] [employer] Assistant. (2) Dyspnea Current Visit: Yes Status: Chronic Assessment and plan: Maintain Fentanly drip following liberation from the ventilator. Will transition to bolus dosing PRN with Morphine as condition warrants. Supplemental oxygen per nasal cannula. Qualifiers: Dyspnea type: unspecified Qualified Code(s): R06.00 - Dyspnea, unspecified (3) Anxiety about health Current Visit: Yes Status: Acute Assessment and plan: Ms. Queen used diazepam 2mg BID as a home medication. Will use lorazepam 0.5mg every 4-6 hours as needed. Adjust dosing as indicated. (4) Altered mental status Current Visit: Yes Status: Acute Qualifiers: Altered mental status type: unspecified Qualified Code(s): R41.82 - Altered mental status, unspecified (5) Sepsis Current Visit: Yes Status: Acute Qualifiers: Sepsis type: sepsis due to unspecified organism Qualified Code(s): A41.9 - Sepsis, unspecified organism (6) Atrial fibrillation with RVR Current Visit: Yes Status: Chronic (7) Multiple sclerosis Current Visit: Yes Status: Chronic Palliative-CN HPI - Data of Consult Patient: new to practice Consult date: 08/29/16 Requesting Physician: Kuldeep Brown DO Primary Care Provider: PCP NO - Consult Narrative Palliative Care/Comfort Measures: Palliative care Reason for consult: Goals of Care History of present illness: Ms. Queen is a 71 year old female presenting to [facility] with left sided facial droop. A stroke work up was completed and the patient was not a candidate for TPA. Ms. Queen was also found to have tachycardia, UTI, leukocytosis and lactic acidosis. She was initailly admitted to a telemetry floor. She received fluids and ATB treatment. Her blood pressure continued to decrease and she was transferred to the ICU for further work-up and treatment. She required the use of vasopressors to maintain blood pressure and her urine output is scant. Shortly after transfer, Ms. Queen's heart rate decreased. She was electively intubated due to rapidly declining condition. The palliative care team was consulted to assist with goals of care. Ms. Queen has a history of MS and has resided in a nursing facility for several years. She is non-ambulatory. Advanced directives have been completed naming her brother-Damien Vazquez her healthcare POA. 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, CKD3, glaucoma, hypothyroidism, depression ) Psychiatric history: depression, other - Past Surgical History Surgical History: cholecystectomy, hysterectomy, other (Echocardiogram in October 2015 shows an ejection fraction of 55%) - Social History Smoking Status: Former smoker (Quit 15 years ago) Smokeless Tobacco Status: No Alcohol use: none Drug use: none - Family History Mother History Unknown: Yes Father History Unknown: Yes Medications and Allergies Acetaminophen [Tylenol] 650 mg PO Q4H PRN 10/28/15 [History] Docusate [Colace] 100 mg PO DAILY PRN 10/28/15 [History] Ezetimibe [Zetia] 10 mg PO DAILY 10/28/15 [History] Gabapentin [Neurontin] 600 mg PO DAILY 10/28/15 [History] Insulin ASPART [NovoLOG] 0 unit SQ TIDAC MDD per sliding scale 10/28/15 [History ] Insulin Glargine [Lantus] 6 unit SQ HS 10/28/15 [History] Levothyroxine [Synthroid] 25 mcg PO DAILY 10/28/15 [History] Magnesium Hydroxide [Milk of Magnesia] 15 ml PO DAILY PRN 10/28/15 [History] Ranitidine HCl [Zantac] 150 mg PO BID 10/28/15 [History] Simvastatin [Zocor] 20 mg PO HS 10/28/15 [History] Amlodipine [Norvasc] 10 mg PO DAILY tablet 11/06/15 [Rx] Apixaban [Eliquis] 5 mg PO BID #0 tablet 11/06/15 [Rx] CloNIDine HCl 0.2 mg PO TID tablet 11/06/15 [Rx] Isosorbide MONOnitrate (24 HR) [Imdur] 60 mg PO DAILY tab.er.24h 11/06/15 [Rx] Lisinopril [Zestril] 20 mg PO DAILY tablet 11/06/15 [Rx] Methylphenidate HCl [Ritalin] 10 mg PO BID #10 tablet 11/06/15 [Rx] Metoprolol [Lopressor] 50 mg PO BID tablet 11/06/15 [Rx] Cholecalciferol (D-3) [Vitamin D] 2,000 unit PO DAILY 08/29/16 [History] Diazepam [Valium] 2 mg PO BID 08/29/16 [History] Glucagon,Human Recombinant [Glucagon Emergency Kit] 1 mg IJ AD PRN 08/29/16 [ History] Nitroglycerin [Nitrostat] 0.4 mg SL AD PRN 08/29/16 [History] Promethazine [Phenergan] 25 mg RC Q12H PRN 08/29/16 [History] Allergies No Known Allergies Allergy (Verified 08/19/15 01:08) ROS unobtainable: due to endotracheal tube, due to mental status Palliative Care-Exam - Constitutional Vitals: Temp Pulse Resp BP Pulse Ox 95.4 F L 94 22 98/52 100 08/29/16 09:00 08/29/16 10:00 08/29/16 10:00 08/29/16 10:00 08/29/16 10:00 Exam: 71 year old female appearing acutely ill on chronic medical conditions. She has bilateral foot drop. She is intubated, sedated and on mechanical ventilation. - Head Head Exam: Present: atraumatic - Eye Eye exam: Present: EOMI Pupils: Present: PERRL - ENT ENT exam: Present: mucous membranes dry - Expanded ENT Exam Teeth exam: Present: edentulous - Expanded Neck Exam Neck exam: Absent: tracheal deviation - Respiratory Respiratory exam: Present: decreased breath sounds. Absent: accessory muscle use, respiratory distress - Cardiovascular Cardiovascular exam: Present: bradycardia, irregular rhythm, tachycardia - GI/Abdominal Exam GI/Abdominal exam: Present: diminished bowel sounds, firm. Absent: guarding, tenderness - Rectal Rectal exam: Present: deferred - Catheter Type: Urethral (Bergeron) (scant urine output) - Extremities Exam Extremities exam: Absent: normal inspection (bilateral foot drop) - Neurological Exam Additional comments: opens eyes to verbal stimuli, bilateral grasp strength equal but weak. - Psychiatric Psychiatric exam: Absent: agitated, anxious - Skin Skin exam: Present: dry Internal Medicine - CN: Reslt - Labs CBC & Chem 7: 08/29/16 04:12 08/29/16 04:12 Labs: Short CBC 08/29/16 Range/Units 04:12 WBC 32.2 H* (4.3-11.1) K/mcL Hgb 10.5 L D (11.5-15.4) g/dL Hct 31.8 L (35.3-44.9) % Plt Count 251 (140-400) K/mcL Neutrophils # 28.1 H (1.6-8.9) K/mcL BMP 08/29/16 04:12 Sodium 135 L Potassium 6.3 H Chloride 111 H Carbon Dioxide 9 L* BUN 60 H Creatinine 2.67 H Glucose 360 H Calcium 8.5 L Cardiac Enzymes 08/29/16 Range/Units 04:12 Troponin I 0.26 H* (0-0.03) ng/mL - ABG Interpretation ABG results: ABG ABG pH 7.14 pH Units (7.32-7.45) L* 08/29/16 08:56 ABG pCO2 26 mmHg (35-45) L 08/29/16 08:56 ABG pO2 320 mmHg (85-104) H 08/29/16 08:56 ABG O2 Saturation 100 % (95-98) H 08/29/16 08:56 PT/INR, D-dimer PT 19.7 Seconds (9.4-12.1) H 08/28/16 17:40 - Impressions Impressions Chest X-Ray 08/28/16 23:57 IMPRESSION: Stable cardiomegaly without evidence for pulmonary edema or other acute cardiopulmonary abnormality. D/ / Rashaad Deleon MD / Rashaad Deleon MD Interpreting Provider: Rashaad Deleon MD Abdomen/Pelvis CT 08/29/16 05:38 IMPRESSION: 1. Trace bilateral effusions with mild atelectasis. 2. Moderate colonic stool retention which may relate to constipation. Nonspecific small bowel mild fluid distention which may relate to adynamic ileus versus possible low-grade partial obstruction. 3. A nonspecific mild fluid distention of the esophagus which could relate to the small bowel changes versus possible reflux or esophageal dysmotility. 4. There is no evidence of perforation or abscess. D/ / 08/29/2016 08:17:00 Sly Castillo MD / patricia Interpreting Provider: Sly Castillo MD Chest X-Ray 08/29/16 08:15 IMPRESSION: Recommend withdrawing endotracheal tube approximately 3 cm. No consolidation. D/ / Gadiel Carr MD / Gadiel Carr MD Interpreting Provider: Gadiel Carr MD X-Ray 08/29/16 08:32 IMPRESSION: Enteric tube beneath the diaphragm, looped in the proximal stomach with the tip and side-hole projecting over the fundus. D/ / 08/29/2016 09:01:19 Sandra Carbone MD / patricia Interpreting Provider: Sandra Carbone MD Consult Discharge Plan - Plan Referrals: NO,PCP [Primary Care Provider] - Palliative Quality Palliative Quality: Screen for Code Status: Yes, Screen for Goals of Care: Yes, Screen for Pain: Yes, If Pain Regimen Started, Initiate Bowel Regimen: Yes, Screen for Nausea/Vomitting: Yes Code Status: 08/28/16 20:04 Resuscitation Status: Active [RES] Routine Comment: Resuscitation Status: DNR-Comfort Care
[2016-08-29] MEDS ORDERED: *HR* LORazepam 2 MG/ML VIAL IVP PRN (11:58)
[2016-08-29] MEDS ORDERED: Lacri-Lube 3.5 GM TUBE BOTH EYES SCH (12:00)
--- NOTE | 2016-08-29 12:30 | Pulmonology Consult Note ---
Addendum entered and electronically signed by Delbert Schuler DO 17:28: Procedure note: Central Venous catheter Date: 08/29/16 Time: 07:45 Indication: Bradycardia, hypotension, inability to obtain peripheral IV access. Resident: ELIZABETH Mckeon. Attending: Dr. Sheldon Procedure was performed emergently; a formal time-out was not performed, patient consent was implied. Correct procedure, site, positioning, and equipment were verified. The patient was placed [id number] Trendelenberg position. The patients right groin was prepped and draped in sterile fashion. Each lumen of the catheter was evacuated of air and flushed with sterile saline prior to placement. No anesthesia was used as patient was not responsive. Right femoral artery and vein were identified under sterile ultrasound. A triple lumen 30cm catheter was introduced into the the right femoral vein under ultrasound guidance using the Seldinger technique. Guide wire placement confirmed with ultrasound. The catheter was threaded smoothly over the guide wire and appropriate blood return was obtained and each lumen flushed easily. The catheter was then sutured in place to the skin and a sterile dressing applied. Perfusion to the extremity distal to the point of catheter insertion was checked and found to be adequate. Dr. Sheldon was present for the entire procedure. Estimated Blood Loss: 10mL The patient tolerated the procedure well and there were no complications. Procedure note: Endotracheal intubation Date: 08/29/16 Time: 08:00 Indication: Respiratory Distress Resident: Delbert Schuler DO Attending: Dr. Sheldon Procedure was performed emergently; a time-out was not performed. Patient was able to nod her head yes when directly asked if we could place a tube down her throat to breathe for her. However, BP was hypotensive and HR bradycardic; brain perfusion questionable. Mallampatti was 2. Patient adentulous. No appreciable micrognathia. Patient pre-oxygenated with prolonged BiPap and FiO2 50%. Patient positioned supine. Glidescope utlized with size 4 MAC blade. Sedation was obtained using 20mg etomidate. The MAC blade was inserted into the oropharynx and vocal cords visualized. A 7.0-georgian endotracheal tube was inserted and visualized going through the vocal cords. The stylette was removed and cuff inclated. Colorimetric change was visualized on the CO2 meter. Breath sounds were heard in both lung orosco equally. No epigastric gastric sounds. The endotracheal tube was placed at 22 cm, measured at the lips. Post- intubation X-ray confirmed tip of ET tube appx 1cm cephalad of dara, no pneumothorax identified. Dr. Valles was present for the entire procedure. Estimated Blood Loss: 0mL The patient tolerated the procedure well and there were no complications. Original Note: <Delbert Schuler - Last Filed: 08/29/16 17:11> Date of Encounter: 08/29/16 Time of Encounter: 07:30 Assessment and Plan (1) Sepsis Status: Acute Severe sepsis: WBC 32.2, Acute oliguria, Cr increase, suspected ileus. Suspected urinary source. Attempts were made to contact patient's brother, her next of kin and POA, unsuccessfully. Her BP was labile this morning and staff was unable to obtain peripheral IV access necessitating emergent femoral central line placement. The patient was intubated, NG tube placed, fluids started, pressors started. CXR showed placement of ET tube appx 1cm from jazz; asked respiratory to withdraw tube 1-2cm. - Sedation via Fentanyl and Precedex IV titrate. Blood cultures pending from ER. UA pending. Prior UA grew Acinetobacter with MDRO. Cr 2.67 vs baseline from 06/29/16: Cr 1.36. Acute olicuria: Urine output scant: 150mL since admission. - Begin cholestasin. - Continue Ceftriaxone day 2, Vancomycin day 2. Vitals labile; intermittently bradycardic into the 20's, intermittently hypotensive into the high 50's systolic. Hx A. Fib. - Cardizem 2.5mg IVP. Patient has history of being sensitive to medication. - Levophed pressor titrate to SBP above 90. Lactic acidosis: Stat lactate 11.7. - Continue IVF - Empiric abx as above ABG: metabolic acidosis. pH 7.14, CO2 26, HCO3 8.9. - Bicarb drip: 2A bicarb in D5 1/2N at 125mL/hr. 11:00 I spoke on the phone with Damien, the patient's brother, next of kin, and POA. I explained the above as well as the rationale given the situation. He agreed to come to the hospital for further discussion. Damien and the patient's [id number] Fred ( of patient's sister) arrived at bedside. Palliative care was bedside as well. Damien expressed the patient's desire to not be on life support. I clarified this: the patient did not wish to be intubated, wished to be DNR and comfort care. Per the patient's brother, Damien, and led by palliative care, de-escalation of care was initiated. - CODE STATUS: DNR CCA. - Patient extubated. - Transfer to palliative care bed. 15:45 Patient . Patient's sister bedside. Criminal Court Judge present. Qualifiers: Sepsis type: sepsis due to unspecified organism Qualified Code(s): A41.9 - Sepsis, unspecified organism (2) Urinary tract infection Status: Acute plan as above Qualifiers: Urinary tract infection type: acute cystitis Hematuria presence: without hematuria Qualified Code(s): N30.00 - Acute cystitis without hematuria (3) Ztjlf-lw-yjiditi kidney injury Status: Acute Cr elevated @ 2.67. Urine output < 0.5mL/kg/hr (30mL/hr) plan as above (4) Troponin level elevated Status: Acute Trop 0.23 > 0.26. Likely secondary to GERSON and sepsis. No EKG changes in ER. - Continue to monitor. (5) COPD (chronic obstructive pulmonary disease) Status: Chronic Qualifiers: COPD type: unspecified COPD Qualified Code(s): J44.9 - Chronic obstructive pulmonary disease, unspecified (6) Diabetes mellitus Status: Chronic Serum Glucose > 300. DKA or HHS unlikely. - SS insulin for permissive hyperglycemia with target glucose 140+. Qualifiers: Diabetes mellitus type: type 2 Diabetes mellitus complication status: with unspecified complications Diabetes mellitus group home insulin use: with group home use Qualified Code(s): E11.8 - Type 2 diabetes mellitus with unspecified complications (7) Multiple sclerosis Status: Chronic Neuro consulted. Per Dr. Wang, patient would unlikely benefit from steroid course at this time. History of Present Illness Consult date: 08/29/16 Requesting physician: Gil Siegel Reason for consult: other (septic shock, metabolic acidosis) Chief complaint: AMS History of present illness: Ms. Queen, a 74yo female, [facility] the [facility] with CC: AMS. Hx CKD, MS, A. Fib, DM, recurrent UTI. Initially admitted to the medical floor , subsequently transferred to the ICU for severe sepsis, metabolic acidosis, hypotension. Patient appeared uncomfortable but not in pain. 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, CKD3, glaucoma, hypothyroidism, depression ) Psychiatric history: depression, other - Past Surgical History Surgical History: cholecystectomy, hysterectomy, other (Echocardiogram in October 2015 shows an ejection fraction of 55%) - Social History Smoking Status: Former smoker (Quit 15 years ago) Smokeless Tobacco Status: No Alcohol use: none Drug use: none - Family History Mother History Unknown: Yes Father History Unknown: Yes Medications and Allergies Acetaminophen [Tylenol] 650 mg PO Q4H PRN 10/28/15 [History] Docusate [Colace] 100 mg PO DAILY PRN 10/28/15 [History] Ezetimibe [Zetia] 10 mg PO DAILY 10/28/15 [History] Gabapentin [Neurontin] 600 mg PO DAILY 10/28/15 [History] Insulin ASPART [NovoLOG] 0 unit SQ TIDAC MDD per sliding scale 10/28/15 [History ] Insulin Glargine [Lantus] 6 unit SQ HS 10/28/15 [History] Levothyroxine [Synthroid] 25 mcg PO DAILY 10/28/15 [History] Magnesium Hydroxide [Milk of Magnesia] 15 ml PO DAILY PRN 10/28/15 [History] Ranitidine HCl [Zantac] 150 mg PO BID 10/28/15 [History] Simvastatin [Zocor] 20 mg PO HS 10/28/15 [History] Amlodipine [Norvasc] 10 mg PO DAILY tablet 11/06/15 [Rx] Apixaban [Eliquis] 5 mg PO BID #0 tablet 11/06/15 [Rx] CloNIDine HCl 0.2 mg PO TID tablet 11/06/15 [Rx] Isosorbide MONOnitrate (24 HR) [Imdur] 60 mg PO DAILY tab.er.24h 11/06/15 [Rx] Lisinopril [Zestril] 20 mg PO DAILY tablet 11/06/15 [Rx] Methylphenidate HCl [Ritalin] 10 mg PO BID #10 tablet 11/06/15 [Rx] Metoprolol [Lopressor] 50 mg PO BID tablet 11/06/15 [Rx] Cholecalciferol (D-3) [Vitamin D] 2,000 unit PO DAILY 08/29/16 [History] Diazepam [Valium] 2 mg PO BID 08/29/16 [History] Glucagon,Human Recombinant [Glucagon Emergency Kit] 1 mg IJ AD PRN 08/29/16 [ History] Nitroglycerin [Nitrostat] 0.4 mg SL AD PRN 08/29/16 [History] Promethazine [Phenergan] 25 mg RC Q12H PRN 08/29/16 [History] Allergies No Known Allergies Allergy (Verified 08/19/15 01:08) All Systems: A 10-system review of systems was performed and is negative for pertinent findings except as documented above in the HPI. Physical Examination Vital Signs: Vital Signs, Last 4 Hours Temp Pulse Resp BP Pulse Ox 08/29/16 11:25 23 100 08/29/16 10:00 94 22 98/52 100 08/29/16 09:52 23 100 08/29/16 09:00 95.4 F L 149 22 112/102 100 Ventilator Settings Ventilator Settings: Ventilator Settings, Last 8 Hours Ventilator Mode VC+ Ventilator Mode VC+ Ventilator Mode VC+ Ventilator Mode VC+ Ventilator Mode VC+ Ventilator Mode VC+ Ventilator Mode A/C Ventilator Tidal Volume 450 Setting Ventilator Tidal Volume 450 Setting Ventilator Tidal Volume 450 Setting Ventilator Tidal Volume 450 Setting Ventilator Tidal Volume 450 Setting Ventilator Tidal Volume 450 Setting Ventilator Tidal Volume 450 Setting Ventilator Respiratory Rate 14 Setting Ventilator Respiratory Rate 14 Setting Ventilator Respiratory Rate 14 Setting Ventilator Respiratory Rate 14 Setting Ventilator Respiratory Rate 14 Setting Ventilator Respiratory Rate 14 Setting Ventilator Respiratory Rate 14 Setting Actual Respiratory Rate 23 Actual Respiratory Rate 22 Actual Respiratory Rate 22 Actual Respiratory Rate 22 Actual Respiratory Rate 20 Actual Respiratory Rate 23 Positive End Expiratory 5 Pressure Positive End Expiratory 5 Pressure Positive End Expiratory 5 Pressure Positive End Expiratory 5 Pressure Positive End Expiratory 5 Pressure Positive End Expiratory 5 Pressure Positive End Expiratory 5 Pressure Peak Inspiratory Airway 17 Pressure Peak Inspiratory Airway 15 Pressure Peak Inspiratory Airway 13 Pressure Peak Inspiratory Airway 11 Pressure Peak Inspiratory Airway 21 Pressure Peak Inspiratory Airway 17 Pressure Results - Laboratory Findings CBC and BMP: 08/29/16 04:12 08/29/16 04:12 ABG ABG pH 7.14 pH Units (7.32-7.45) L* 08/29/16 08:56 ABG pCO2 26 mmHg (35-45) L 08/29/16 08:56 ABG pO2 320 mmHg (85-104) H 08/29/16 08:56 ABG O2 Saturation 100 % (95-98) H 08/29/16 08:56 PT/INR, D-dimer PT 19.7 Seconds (9.4-12.1) H 08/28/16 17:40 Abnormal lab findings: Abnormal lab results WBC 32.2 K/mcL (4.3-11.1) H* 08/29/16 04:12 RBC 3.50 M/mcL (3.82-4.97) L 08/29/16 04:12 Hgb 10.5 g/dL (11.5-15.4) L D 08/29/16 04:12 Hct 31.8 % (35.3-44.9) L 08/29/16 04:12 RDW 15.1 % (11.5-14.5) H 08/29/16 04:12 Band Neutrophils % 6.0 % (0-4) H 08/28/16 17:40 Neutrophils # 28.1 K/mcL (1.6-8.9) H 08/29/16 04:12 Monocytes # 2.5 K/mcL (0.0-1.3) H 08/29/16 04:12 Nucleated RBCs/100 WBC 0.2 /100 WBC (0) H 08/29/16 04:12 PT 19.7 Seconds (9.4-12.1) H 08/28/16 17:40 ABG pH 7.14 pH Units (7.32-7.45) L* 08/29/16 08:56 ABG pCO2 26 mmHg (35-45) L 08/29/16 08:56 ABG pO2 320 mmHg (85-104) H 08/29/16 08:56 ABG HCO3 8.9 mEQ/L (21-27) L 08/29/16 08:56 ABG Total CO2 9.7 mEq/L (20-26) L 08/29/16 08:56 ABG O2 Saturation 100 % (95-98) H 08/29/16 08:56 ABG Base Excess -18.5 mEq/L (-2.0 to 3.0) L 08/29/16 08:56 Sodium 135 mEq/L (136-145) L 08/29/16 04:12 Potassium 6.3 mEq/L (3.5-4.5) H 08/29/16 04:12 Chloride 111 mEq/L (98-109) H 08/29/16 04:12 Carbon Dioxide 9 mEq/L (19-29) L* 08/29/16 04:12 BUN 60 mg/dL (7-20) H 08/29/16 04:12 Creatinine 2.67 mg/dL (0.57-1.11) H 08/29/16 04:12 Est GFR ( Amer) 21 (> 60) L 08/29/16 04:12 Est GFR (Non-Af Amer) 18 (> 60) L 08/29/16 04:12 Glucose 360 mg/dL (70-99) H 08/29/16 04:12 POC Glucose 271 (58-89) H 08/29/16 06:40 Calculated Osmolality 311 (280-300) H 08/29/16 04:12 Lactic Acid 11.7 mmol/L (0.5-2.2) H* 08/29/16 09:45 Calcium 8.5 mg/dL (8.6-10.8) L 08/29/16 04:12 Troponin I 0.26 ng/mL (0-0.03) H* 08/29/16 04:12 Albumin 3.1 g/dL (3.5-5.0) L 08/28/16 17:40 Globulin 4.4 g/dL (2.4-3.5) H 08/28/16 17:40 Albumin/Globulin Ratio 0.7 (1.1-2.2) L 08/28/16 17:40 Ur Specimen Adequacy See below A 08/28/16 18:28 Urine Clarity Turbid (Clear) A 08/28/16 18:28 Urine Protein 100 mg/dL (Neg-Trace) H 08/28/16 18:28 Urine Glucose (UA) 500 mg/dL (Normal) H 08/28/16 18:28 Urine Blood Moderate (Negative) H 08/28/16 18:28 Urine Bilirubin Small (Negative) H 08/28/16 18:28 Ur Leukocyte Esterase Large (Negative) H 08/28/16 18:28 Urine Microscopic RBC 3-5 per hpf (0-3) H 08/28/16 18:28 Urine Microscopic WBC TNTC per hpf (0-3) H 08/28/16 18:28 Ur Squamous Epith Cells Many per lpf (None-Few) H 08/28/16 18:28 Ur Transition Epith Cell Moderate per hpf (None-Few) H 08/28/16 18:28 Ur Renal Epithelial Cell Moderate per hpf (None-Few) H 08/28/16 18:28 Urine Bacteria Many per hpf (None-Few) H 08/28/16 18:28 Ur Culture Indicated? YES (NO) A 08/28/16 18:28 U Benzodiazepines Scrn Positive ng/mL (Lgbbrp=344) H 08/28/16 18:28 - Clinical Findings Intake & Output: Intake & Output 08/28/16 08/29/16 08/29/16 23:59 07:59 15:59 Intake Total 1999 100 / 100 2074 Output Total 150 / 150 150 / 150 Balance 1999 -50 / -50 1924 Consult Discharge Plan - Plan Referrals: NO,PCP [Primary Care Provider] - <Grady Sheldon - Last Filed: 08/29/16 21:18> Date of Encounter: 08/29/16 All Systems: A 10-system review of systems was performed and is negative for pertinent findings except as documented above in the HPI. Ventilator Settings Ventilator Settings: Ventilator Settings, Last 8 Hours Ventilator Mode VC+ Ventilator Mode VC+ Ventilator Mode VC+ Ventilator Tidal Volume 450 Setting Ventilator Tidal Volume 450 Setting Ventilator Tidal Volume 450 Setting Ventilator Respiratory Rate 14 Setting Ventilator Respiratory Rate 14 Setting Ventilator Respiratory Rate 14 Setting Actual Respiratory Rate 23 Actual Respiratory Rate 22 Actual Respiratory Rate 22 Positive End Expiratory 5 Pressure Positive End Expiratory 5 Pressure Positive End Expiratory 5 Pressure Peak Inspiratory Airway 17 Pressure Peak Inspiratory Airway 15 Pressure Peak Inspiratory Airway 13 Pressure Results - Laboratory Findings CBC and BMP: 08/29/16 04:12 08/29/16 04:12 ABG ABG pH 7.14 pH Units (7.32-7.45) L* 08/29/16 08:56 ABG pCO2 26 mmHg (35-45) L 08/29/16 08:56 ABG pO2 320 mmHg (85-104) H 08/29/16 08:56 ABG O2 Saturation 100 % (95-98) H 08/29/16 08:56 PT/INR, D-dimer PT 19.7 Seconds (9.4-12.1) H 08/28/16 17:40 Abnormal lab findings: Abnormal lab results WBC 32.2 K/mcL (4.3-11.1) H* 08/29/16 04:12 RBC 3.50 M/mcL (3.82-4.97) L 08/29/16 04:12 Hgb 10.5 g/dL (11.5-15.4) L D 08/29/16 04:12 Hct 31.8 % (35.3-44.9) L 08/29/16 04:12 RDW 15.1 % (11.5-14.5) H 08/29/16 04:12 Band Neutrophils % 6.0 % (0-4) H 08/28/16 17:40 Neutrophils # 28.1 K/mcL (1.6-8.9) H 08/29/16 04:12 Monocytes # 2.5 K/mcL (0.0-1.3) H 08/29/16 04:12 Nucleated RBCs/100 WBC 0.2 /100 WBC (0) H 08/29/16 04:12 PT 19.7 Seconds (9.4-12.1) H 08/28/16 17:40 ABG pH 7.14 pH Units (7.32-7.45) L* 08/29/16 08:56 ABG pCO2 26 mmHg (35-45) L 08/29/16 08:56 ABG pO2 320 mmHg (85-104) H 08/29/16 08:56 ABG HCO3 8.9 mEQ/L (21-27) L 08/29/16 08:56 ABG Total CO2 9.7 mEq/L (20-26) L 08/29/16 08:56 ABG O2 Saturation 100 % (95-98) H 08/29/16 08:56 ABG Base Excess -18.5 mEq/L (-2.0 to 3.0) L 08/29/16 08:56 Sodium 135 mEq/L (136-145) L 08/29/16 04:12 Potassium 6.3 mEq/L (3.5-4.5) H 08/29/16 04:12 Chloride 111 mEq/L (98-109) H 08/29/16 04:12 Carbon Dioxide 9 mEq/L (19-29) L* 08/29/16 04:12 BUN 60 mg/dL (7-20) H 08/29/16 04:12 Creatinine 2.67 mg/dL (0.57-1.11) H 08/29/16 04:12 Est GFR ( Amer) 21 (> 60) L 08/29/16 04:12 Est GFR (Non-Af Amer) 18 (> 60) L 08/29/16 04:12 Glucose 360 mg/dL (70-99) H 08/29/16 04:12 POC Glucose 271 (58-89) H 08/29/16 06:40 Calculated Osmolality 311 (280-300) H 08/29/16 04:12 Lactic Acid 11.7 mmol/L (0.5-2.2) H* 08/29/16 09:45 Calcium 8.5 mg/dL (8.6-10.8) L 08/29/16 04:12 Troponin I 0.26 ng/mL (0-0.03) H* 08/29/16 04:12 Albumin 3.1 g/dL (3.5-5.0) L 08/28/16 17:40 Globulin 4.4 g/dL (2.4-3.5) H 08/28/16 17:40 Albumin/Globulin Ratio 0.7 (1.1-2.2) L 08/28/16 17:40 Ur Specimen Adequacy See below A 08/28/16 18:28 Urine Clarity Turbid (Clear) A 08/28/16 18:28 Urine Protein 100 mg/dL (Neg-Trace) H 08/28/16 18:28 Urine Glucose (UA) 500 mg/dL (Normal) H 08/28/16 18:28 Urine Blood Moderate (Negative) H 08/28/16 18:28 Urine Bilirubin Small (Negative) H 08/28/16 18:28 Ur Leukocyte Esterase Large (Negative) H 08/28/16 18:28 Urine Microscopic RBC 3-5 per hpf (0-3) H 08/28/16 18:28 Urine Microscopic WBC TNTC per hpf (0-3) H 08/28/16 18:28 Ur Squamous Epith Cells Many per lpf (None-Few) H 08/28/16 18:28 Ur Transition Epith Cell Moderate per hpf (None-Few) H 08/28/16 18:28 Ur Renal Epithelial Cell Moderate per hpf (None-Few) H 08/28/16 18:28 Urine Bacteria Many per hpf (None-Few) H 08/28/16 18:28 Ur Culture Indicated? YES (NO) A 08/28/16 18:28 U Benzodiazepines Scrn Positive ng/mL (Rzfzzy=477) H 08/28/16 18:28 - Clinical Findings Intake & Output: Intake & Output 08/29/16 08/29/16 08/29/16 07:59 15:59 23:59 Intake Total 100 / 100 2094 / 2094 Output Total 150 / 150 150 / 150 Balance -50 / -50 1944 / 1944 - Attending Attestation I examined this patient and my medical decision-making was reviewed with the [employer]/PA/Advanced Practice Nurse/Resident Physician. I agree with the documented findings, disposition and treatment plan as described except to the extent set forth below. Patient seen and examined. Labs, radiology, chart personally reviewed. Agree with resident's history and physical, assessment, plan with following comments: COST REPORT CLERK: Patient follows commands when first she was transferred to the ICU, however she was lethargic and overall condition was not doing good. I talked to the hospitalist that was covering night and her mental status gradually deteriorated until she ended up on the ventilator and she was on sedation. Pulmonary: Patient with abdominal distension and due to her mental status change and hemodynamically unstability, patient was intubated. Before doing that , tried to reach POA, but was not able to do that and for that reason she was urgently intubated and placed on the mechanical ventilation, however when brother who is POA arrived, he said patient's wishes not to be on any life support and palliative care was consulted and eventually was extubated and . Ventilator was managed and changed setting according to her ABG. Cardiovascular: Very unstable, when first arrived, I gave her Cardizem for her A.fib with RVR and she responded, however at one point she briefly was bradycardic and clealrly patient very unstable and she was on vasopressors and when stopped, she after stopping life support per patient;s POA. GI: Abdominal distension and NG tube was placed before intubation and CT abdomen was done. Heme: DVT prophylaxis per routine ID: Continue antibiotics and plan to de-escalation Renal; urine out put and renal funtion reviewed. No urine output and this is secondary to the shock. Endorcine: blood glucose is monitored Lines: all lines checked and no evidence of infections Skin: skin care to prevent pressure ulcers per nursing routine care Overall prognosis extremely poor and I was at bedside when patient was brought to ICU and entire resuscitation and then discussion with POA. I spent 80 min of Critical Care time with this patient. It involved decision making of high complexity to assess, manipulate, and support vital organ system failure and/or to prevent further life threatening deterioration of the patient' s condition. The time involved in the performance of separately reportable procedures was not counted toward critical care time.
[2016-08-29] MEDS ORDERED: *HR* Morphine 2 MG/ML SYRINGE IVP PRN (13:52)
[2016-08-29] MEDS ORDERED: Aminoglycoside Consult 1 EACH MC ONE (17:12)
--- NOTE | 2016-08-29 17:15 | Discharge Summary ---
<Delbert Schuler - Last Filed: 08/29/16 17:12> Date of Encounter: 08/29/16 Time of Encounter: 15:45 - Discharge Diagnosis (1) Sepsis Priority: Primary Status: Acute Qualifiers: Sepsis type: sepsis due to unspecified organism Qualified Code(s): A41.9 - Sepsis, unspecified organism (2) Urinary tract infection Priority: Secondary Status: Acute Qualifiers: Urinary tract infection type: acute cystitis Hematuria presence: without hematuria Qualified Code(s): N30.00 - Acute cystitis without hematuria (3) Gsnuy-uo-tzteexu kidney injury Priority: Secondary Status: Acute (4) Troponin level elevated Priority: Secondary Status: Acute (5) COPD (chronic obstructive pulmonary disease) Priority: Secondary Status: Chronic Qualifiers: COPD type: unspecified COPD Qualified Code(s): J44.9 - Chronic obstructive pulmonary disease, unspecified (6) Diabetes mellitus Priority: Secondary Status: Chronic Qualifiers: Diabetes mellitus type: type 2 Diabetes mellitus complication status: with unspecified complications 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 Qualified Code(s): E11.8 - Type 2 diabetes mellitus with unspecified complications (7) Multiple sclerosis Priority: Secondary Status: Chronic - Discharge Medications Home Medications: Acetaminophen [Tylenol] 650 mg PO Q4H PRN 10/28/15 [History] Docusate [Colace] 100 mg PO DAILY PRN 10/28/15 [History] Ezetimibe [Zetia] 10 mg PO DAILY 10/28/15 [History] Gabapentin [Neurontin] 600 mg PO DAILY 10/28/15 [History] Insulin ASPART [NovoLOG] 0 unit SQ TIDAC MDD per sliding scale 10/28/15 [History ] Insulin Glargine [Lantus] 6 unit SQ HS 10/28/15 [History] Levothyroxine [Synthroid] 25 mcg PO DAILY 10/28/15 [History] Magnesium Hydroxide [Milk of Magnesia] 15 ml PO DAILY PRN 10/28/15 [History] Ranitidine HCl [Zantac] 150 mg PO BID 10/28/15 [History] Simvastatin [Zocor] 20 mg PO HS 10/28/15 [History] Amlodipine [Norvasc] 10 mg PO DAILY tablet 11/06/15 [Rx] Apixaban [Eliquis] 5 mg PO BID #0 tablet 11/06/15 [Rx] CloNIDine HCl 0.2 mg PO TID tablet 11/06/15 [Rx] Isosorbide MONOnitrate (24 HR) [Imdur] 60 mg PO DAILY tab.er.24h 11/06/15 [Rx] Lisinopril [Zestril] 20 mg PO DAILY tablet 11/06/15 [Rx] Methylphenidate HCl [Ritalin] 10 mg PO BID #10 tablet 11/06/15 [Rx] Metoprolol [Lopressor] 50 mg PO BID tablet 11/06/15 [Rx] Cholecalciferol (D-3) [Vitamin D] 2,000 unit PO DAILY 08/29/16 [History] Diazepam [Valium] 2 mg PO BID 08/29/16 [History] Glucagon,Human Recombinant [Glucagon Emergency Kit] 1 mg IJ AD PRN 08/29/16 [ History] Nitroglycerin [Nitrostat] 0.4 mg SL AD PRN 08/29/16 [History] Promethazine [Phenergan] 25 mg RC Q12H PRN 08/29/16 [History] Allergies/Adverse Reactions: Allergies No Known Allergies Allergy (Verified 08/19/15 01:08) Procedures and tests throughout hospitalization: Central Line placed in patient's right femoral vein. Patient intubated. Labs on day of discharge: Labs from last 24 hours 08/29/16 08/29/16 08/29/16 09:45 08:56 06:40 WBC RBC Hgb Hct MCV MCH MCHC RDW Plt Count MPV Immature Gran % Seg Neutrophils % Lymphocytes % Monocytes % Eosinophils % Basophils % Neutrophils # Lymphocytes # Monocytes # Eosinophils # Basophils # Nucleated RBCs/100 WBC Platelet Estimate ABG pH 7.14 L* ABG pCO2 26 L ABG pO2 320 H ABG HCO3 8.9 L ABG Total CO2 9.7 L ABG O2 Saturation 100 H ABG Base Excess -18.5 L Blood Gas Modality VC Inspired O2 100 Sodium Potassium Chloride Carbon Dioxide BUN Creatinine Est GFR ( Amer) Est GFR (Non-Af Amer) BUN/Creatinine Ratio Glucose POC Glucose 271 H Calculated Osmolality Lactic Acid 11.7 H* Calcium Troponin I 08/29/16 08/29/16 08/29/16 05:50 04:12 04:12 WBC RBC Hgb Hct MCV MCH MCHC RDW Plt Count MPV Immature Gran % Seg Neutrophils % Lymphocytes % Monocytes % Eosinophils % Basophils % Neutrophils # Lymphocytes # Monocytes # Eosinophils # Basophils # Nucleated RBCs/100 WBC Platelet Estimate ABG pH 7.14 L* D ABG pCO2 22 L ABG pO2 344 H ABG HCO3 7.5 L ABG Total CO2 8.2 L ABG O2 Saturation 100 H ABG Base Excess -19.8 L Blood Gas Modality NRB Inspired O2 100 Sodium Potassium Chloride Carbon Dioxide BUN Creatinine Est GFR ( Amer) Est GFR (Non-Af Amer) BUN/Creatinine Ratio Glucose POC Glucose Calculated Osmolality Lactic Acid 7.9 H* Calcium Troponin I 0.26 H* 08/29/16 08/29/16 08/29/16 04:12 04:12 00:08 WBC 32.2 H* RBC 3.50 L Hgb 10.5 L D Hct 31.8 L MCV 90.9 MCH 30.0 MCHC 33.0 RDW 15.1 H Plt Count 251 MPV 10.8 Immature Gran % 0.7 Seg Neutrophils % 87.4 Lymphocytes % 4.1 Monocytes % 7.6 Eosinophils % 0.0 Basophils % 0.2 Neutrophils # 28.1 H Lymphocytes # 1.3 Monocytes # 2.5 H Eosinophils # 0.0 Basophils # 0.1 Nucleated RBCs/100 WBC 0.2 H Platelet Estimate Normal ABG pH 7.31 L ABG pCO2 18 L* ABG pO2 188 H ABG HCO3 9.1 L ABG Total CO2 9.7 L ABG O2 Saturation 100 H ABG Base Excess -15.3 L Blood Gas Modality Inspired O2 Sodium 135 L Potassium 6.3 H Chloride 111 H Carbon Dioxide 9 L* BUN 60 H Creatinine 2.67 H Est GFR ( Amer) 21 L Est GFR (Non-Af Amer) 18 L BUN/Creatinine Ratio 22 Glucose 360 H POC Glucose Calculated Osmolality 311 H Lactic Acid Calcium 8.5 L Troponin I 08/28/16 21:56 WBC RBC Hgb Hct MCV MCH MCHC RDW Plt Count MPV Immature Gran % Seg Neutrophils % Lymphocytes % Monocytes % Eosinophils % Basophils % Neutrophils # Lymphocytes # Monocytes # Eosinophils # Basophils # Nucleated RBCs/100 WBC Platelet Estimate ABG pH ABG pCO2 ABG pO2 ABG HCO3 ABG Total CO2 ABG O2 Saturation ABG Base Excess Blood Gas Modality Inspired O2 Sodium Potassium Chloride Carbon Dioxide BUN Creatinine Est GFR ( Amer) Est GFR (Non-Af Amer) BUN/Creatinine Ratio Glucose POC Glucose 373 H Calculated Osmolality Lactic Acid Calcium Troponin I - Impressions ITS Impressions Chest X-Ray 08/28/16 23:57 IMPRESSION: Stable cardiomegaly without evidence for pulmonary edema or other acute cardiopulmonary abnormality. D/ / Rashaad Deleon MD / Rashaad Deleon MD Interpreting Provider: Rashaad Deleon MD Abdomen/Pelvis CT 08/29/16 05:38 IMPRESSION: 1. Trace bilateral effusions with mild atelectasis. 2. Moderate colonic stool retention which may relate to constipation. Nonspecific small bowel mild fluid distention which may relate to adynamic ileus versus possible low-grade partial obstruction. 3. A nonspecific mild fluid distention of the esophagus which could relate to the small bowel changes versus possible reflux or esophageal dysmotility. 4. There is no evidence of perforation or abscess. D/ / 08/29/2016 08:17:00 Sly Castillo MD / patricia Interpreting Provider: Sly Castillo MD Chest X-Ray 08/29/16 08:15 IMPRESSION: Recommend withdrawing endotracheal tube approximately 3 cm. No consolidation. D/ / Gadiel Carr MD / Gadiel Carr MD Interpreting Provider: Gadiel Carr MD X-Ray 08/29/16 08:32 IMPRESSION: Enteric tube beneath the diaphragm, looped in the proximal stomach with the tip and side-hole projecting over the fundus. D/ / 08/29/2016 09:01:19 Sandra Carbone MD / lgray Interpreting Provider: Sandra Carbone MD Date of admission: 08/28/16 20:11 Primary care physician: PCP OSIEL Consults: 08/29/16 06:05 Consult to Pulmonology [CONS] Routine Consulting Provider: Fransico Helms & Noni Le Reason for Consult: septic shock, metabolic acidosis Call Completed: Osiel 08/29/16 09:23 Consult to Palliative Care [CONS] Routine Comment: BrotherDamien will be here today to discuss Consulting Provider: Kathy Care Mimi Discharging clinician: Delbert Schuler Anticipated date of discharge: 08/29/16 - Patient Status Disposition: Condition: Undetermined - Discharge Instructions Follow Up With: OSIEL,PCP [Primary Care Provider] - - Hospital Course Hospital course: Ms. Queen is a 71 year old female presented to the ER from her long term with CC: AMS. She was subsequently admitted to the medical floor and transferred to the ICU for severe sepsis of suspected urinary source. She was in metabolic acidosis, acute kidney failure, and had suspected small bowel ileus. Her vital signs were labile; a right femoral vein central line was placed. Attempts were made to contact her next of kin, her brother Damien, unsuccessfully. Patient was subsequently intubated. Empiric antibiotics, levophed, and IV fluids were initiated. Cultures were obtained in the ER. Damien and patient's waiutjz-oh-ama, Gen, subsequently arrived at bedside. Palliative care was bedside as well. After thorough discussion of current therapies, rationale for those therapies, suspected etiology of the patient's condition and likely outcome, patient's brother elected to adhere to patient's wished to be DNR- CCA without lifesupport/intubation/etc. Through palliative care, patient's medical care was de-escilated. Patient's brother and brother-in -law went home. Patient's sister arrived at bedside. Patient , declared at 15:45. Further details in patient's pulmonology consult note. - Time Spent with Patient Total time spent providing and/or coordinating discharge services: Greater than 30 minutes Physical Examination Vital Signs: Patient . HR 0 RR 0 No palpable pulses. No pupillary light response. General appearance: other ENT: other Effort: other Cardiovascular: other Gastrointestinal: other Integumentary: other Extremities: other Musculoskeletal: other other other <Grady Sheldon M - Last Filed: 08/29/16 20:40> Date of Encounter: 08/29/16 Labs on day of discharge: Labs from last 24 hours 08/29/16 08/29/16 08/29/16 09:45 08:56 06:40 WBC RBC Hgb Hct MCV MCH MCHC RDW Plt Count MPV Immature Gran % Seg Neutrophils % Lymphocytes % Monocytes % Eosinophils % Basophils % Neutrophils # Lymphocytes # Monocytes # Eosinophils # Basophils # Nucleated RBCs/100 WBC Platelet Estimate ABG pH 7.14 L* ABG pCO2 26 L ABG pO2 320 H ABG HCO3 8.9 L ABG Total CO2 9.7 L ABG O2 Saturation 100 H ABG Base Excess -18.5 L Blood Gas Modality VC Inspired O2 100 Sodium Potassium Chloride Carbon Dioxide BUN Creatinine Est GFR ( Amer) Est GFR (Non-Af Amer) BUN/Creatinine Ratio Glucose POC Glucose 271 H Calculated Osmolality Lactic Acid 11.7 H* Calcium Troponin I 08/29/16 08/29/16 08/29/16 05:50 04:12 04:12 WBC RBC Hgb Hct MCV MCH MCHC RDW Plt Count MPV Immature Gran % Seg Neutrophils % Lymphocytes % Monocytes % Eosinophils % Basophils % Neutrophils # Lymphocytes # Monocytes # Eosinophils # Basophils # Nucleated RBCs/100 WBC Platelet Estimate ABG pH 7.14 L* D ABG pCO2 22 L ABG pO2 344 H ABG HCO3 7.5 L ABG Total CO2 8.2 L ABG O2 Saturation 100 H ABG Base Excess -19.8 L Blood Gas Modality NRB Inspired O2 100 Sodium Potassium Chloride Carbon Dioxide BUN Creatinine Est GFR ( Amer) Est GFR (Non-Af Amer) BUN/Creatinine Ratio Glucose POC Glucose Calculated Osmolality Lactic Acid 7.9 H* Calcium Troponin I 0.26 H* 08/29/16 08/29/16 08/29/16 04:12 04:12 00:08 WBC 32.2 H* RBC 3.50 L Hgb 10.5 L D Hct 31.8 L MCV 90.9 MCH 30.0 MCHC 33.0 RDW 15.1 H Plt Count 251 MPV 10.8 Immature Gran % 0.7 Seg Neutrophils % 87.4 Lymphocytes % 4.1 Monocytes % 7.6 Eosinophils % 0.0 Basophils % 0.2 Neutrophils # 28.1 H Lymphocytes # 1.3 Monocytes # 2.5 H Eosinophils # 0.0 Basophils # 0.1 Nucleated RBCs/100 WBC 0.2 H Platelet Estimate Normal ABG pH 7.31 L ABG pCO2 18 L* ABG pO2 188 H ABG HCO3 9.1 L ABG Total CO2 9.7 L ABG O2 Saturation 100 H ABG Base Excess -15.3 L Blood Gas Modality Inspired O2 Sodium 135 L Potassium 6.3 H Chloride 111 H Carbon Dioxide 9 L* BUN 60 H Creatinine 2.67 H Est GFR ( Amer) 21 L Est GFR (Non-Af Amer) 18 L BUN/Creatinine Ratio 22 Glucose 360 H POC Glucose Calculated Osmolality 311 H Lactic Acid Calcium 8.5 L Troponin I 08/28/16 21:56 WBC RBC Hgb Hct MCV MCH MCHC RDW Plt Count MPV Immature Gran % Seg Neutrophils % Lymphocytes % Monocytes % Eosinophils % Basophils % Neutrophils # Lymphocytes # Monocytes # Eosinophils # Basophils # Nucleated RBCs/100 WBC Platelet Estimate ABG pH ABG pCO2 ABG pO2 ABG HCO3 ABG Total CO2 ABG O2 Saturation ABG Base Excess Blood Gas Modality Inspired O2 Sodium Potassium Chloride Carbon Dioxide BUN Creatinine Est GFR ( Amer) Est GFR (Non-Af Amer) BUN/Creatinine Ratio Glucose POC Glucose 373 H Calculated Osmolality Lactic Acid Calcium Troponin I - Impressions ITS Impressions Chest X-Ray 08/28/16 23:57 IMPRESSION: Stable cardiomegaly without evidence for pulmonary edema or other acute cardiopulmonary abnormality. D/ / Rashaad Deleon MD / Rashaad Deleon MD Interpreting Provider: Rashaad Deleon MD Abdomen/Pelvis CT 08/29/16 05:38 IMPRESSION: 1. Trace bilateral effusions with mild atelectasis. 2. Moderate colonic stool retention which may relate to constipation. Nonspecific small bowel mild fluid distention which may relate to adynamic ileus versus possible low-grade partial obstruction. 3. A nonspecific mild fluid distention of the esophagus which could relate to the small bowel changes versus possible reflux or esophageal dysmotility. 4. There is no evidence of perforation or abscess. D/ / 08/29/2016 08:17:00 Sly Castillo MD / patricia Interpreting Provider: Sly Castillo MD Chest X-Ray 08/29/16 08:15 IMPRESSION: Recommend withdrawing endotracheal tube approximately 3 cm. No consolidation. D/ / Gadiel Carr MD / Gadiel Carr MD Interpreting Provider: Gadiel Carr MD X-Ray 08/29/16 08:32 IMPRESSION: Enteric tube beneath the diaphragm, looped in the proximal stomach with the tip and side-hole projecting over the fundus. D/ / 08/29/2016 09:01:19 Sandra Carbone MD / lgray Interpreting Provider: Sandra Carbone MD Date of admission: 08/28/16 20:11 Primary care physician: PCP NO Consults: 08/29/16 06:05 Consult to Pulmonology [CONS] Routine Consulting Provider: Pulm Crit [facility] Francis Reason for Consult: septic shock, metabolic acidosis Call Completed: No 08/29/16 09:23 Consult to Palliative Care [CONS] Routine Comment: HuerDamien will be here today to discuss Consulting Provider: Palliative Care Francis - Hospital Course Hospital course: Ms. Queen is a 71 year old female - Time Spent with Patient Total time spent providing and/or coordinating discharge services: - Attending Attestation I examined this patient and my medical decision-making was reviewed with the CENSUS TAKER/PA/Advanced Practice Nurse/Resident Physician. I agree with the documented findings, disposition and treatment plan as described except to the extent set forth below. Patient with septic shock and respiratory failure and her POA came to the ICU and stated her wishes not to be on any life support and palliative care was consulted. Patient was extubated and then patient . Family is aware.
[2016-08-29] MEDS ORDERED: *HR* Heparin 5,000 UNIT/ML VIAL SQ SCH (18:00)
--- NOTE | 2016-08-30 06:32 | Electrocardiograph Report ---
[place] [address] Test Date: 2016-08-28 Pat Name: Adrianna Queen Department: 105 Room: [facility] Gender: F [employer] Operator: : 1945 Requested By: Leonidas Thomas Order Number: [id number] Reading MD: Nir Álvarez MD Measurements Intervals [place] Rate: 117 P: -74 VT: 129 QRS: 99 QRSD: 76 T: 71 QT: 342 QTc: 411 Interpretive Statements SINUS TACHYCARDIA BORDERLINE RIGHT AXIS DEVIATION LOW QRS VOLTAGE IN EXTREMITY LEADS BASELINE ARTIFACT Poor R wave progression Electronically Signed On 08-30-2016 6:30:48 EDT by Nir Álvarez MD
--- NOTE | 2016-08-30 07:26 | Electrocardiograph Report ---
[address] [address] Test Date: 2016-08-28 Pat Name: Adrianna Queen Department: 105 Room: 10 Gender: Female Management Supervisor: ANITHA : 1945 Requested By: Kuldeep Brown Order Number: [id number] Reading MD: Nir Álvarez MD Measurements Intervals [place] Rate: 103 P: 56 AK: 173 QRS: 97 QRSD: 78 T: 36 QT: 376 QTc: 436 Interpretive Statements SINUS TACHYCARDIA WITH FREQUENT VENTRICULAR PREMATURE COMPLEXES WITH OCCASIONAL SUPRAVENTRICULAR PREMATURE COMPLEXES LOW QRS VOLTAGE IN PRECORDIAL LEADS Electronically Signed On 08-30-2016 7:25:22 EDT by Nir Álvarez MD
[2016-08-30] MEDS ORDERED: COLISTIN IVPB SCH (09:00)
[2016-08-30] MEDS ORDERED: Pantoprazole 40 MG VIAL IVP SCH (09:00)
[2016-08-30] MEDS ORDERED: SODIUM CHLORIDE 0.9% IVPB SCH (09:00)
== END 2016-08-29 17:13 | disposition expired | DRG 720 ==
LOC: EMEROO 17:21 → 2NENU 17:21 → ICNU 08-29 06:37
PROVIDERS: ADMIT Internal Medicine; ATTEND Internal Medicine